=== PATIENT | female | born 1960 | race Caucasian/White ===

== ENCOUNTER 2016-06-16 19:43 | Emergency (ER) | payer OTHER ==
[~2016-06-16] VITALS: Ht 160 cm; Wt 80.5 kg
[~2016-06-16 19:43] MED LIST: ATV/1 PO; CITA40TA4 PO
[2016-06-16 19:48] VITALS: TEMP 37.2; Ht 160 cm; Wt 80.5 kg
[2016-06-16] MEDS ORDERED: ALBUT/IPRATROP 3MG/0.5MG NEB 3 ML VIAL INH STA (20:14)
[2016-06-16] MEDS ORDERED: KETOROLAC TROMETHAMINE 30 MG/ML VIAL IV STA (20:14)
[2016-06-16] MEDS ORDERED: LORA-741 PO (20:19)
[2016-06-16] MEDS ORDERED: ESCI10TA17 PO (20:20)
[2016-06-16] MEDS ORDERED: METO25TA56 PO (20:38)
[2016-06-16] MEDS ORDERED: ASPI81TA28 PO (20:40)
[2016-06-16 20:55] LABS: BASO % 0.7 %; BASO ABS # 0.06 K/uL (0-0.2); COMPLETE YES; EOS % 3.1 %; HEMATOCRIT 39.7 % (37-47); IG% 0.2 %; LYMPH % 18.6 %; LYMPH ABS # 1.64 K/uL (1.2-3.4); MEAN CELL VOLUME 89.8 fL (80-100); MEAN CORPUSCULAR HEMOGLOBIN 30.1 pg (25-34); MEAN CORPUSCULAR HGB CONC 33.5 g/dl (32-36); MEAN PLATELET VOLUME 9.7 fL (7.4-10.4); MONO % 11.5 %; NEUT % 65.9 %; PLATELET COUNT 314 K/uL (130-400); RED BLOOD COUNT 4.42 M/uL (4.2-5.4); WHITE BLOOD COUNT 8.81 K/uL (4.8-10.8)
[2016-06-16 21:13] LABS: CALCIUM 8.4 mg/dl (8.5-10.1)
[2016-06-16 21:15] LABS: BUN/CREATININE RATIO 12.2 (10-20); CREATININE 0.77 mg/dl (0.60-1.20); POTASSIUM 3.8 mmol/L (3.5-5.1)
--- NOTE | 2016-06-16 21:40 | DIAGNOSTIC IMAGING REPORT ---
TWO VIEW CHEST CLINICAL HISTORY: Cough and fever. Dyspnea.. FINDINGS: PA and lateral chest radiographs are compared to study dated 05/05/2015. The patient is status post midline sternotomy. The heart is enlarged and there is atherosclerotic calcification of the thoracic aorta. The pulmonary vasculature is noncongested. The lungs and pleural spaces are clear. There is no pneumothorax. The skeletal structures are osteopenic. The bony thorax appears intact. IMPRESSION: Cardiomegaly with no active disease in the chest. Electronically signed by: Petar Anderson M.D. 06/16/2016 9:38 PM Dictated Date/Time: 06/16/2016 9:36 PM
[2016-06-16] MEDS ORDERED: ALBUTEROL HFA 8 GM INHALER INH ONE (22:00)
[2016-06-16 22:13] VITALS: BP 119/70; PULSE 73; O2SAT 93
[2016-06-16] MEDS ORDERED: EZET10TA38 PO (23:40)
--- NOTE | 2016-06-18 07:52 | EMERGENCY ROOM VISIT NOTE ---
ED Visit Note First contact with patient: 20:06 Chief Complaint: Sore throat, cough and chest congestion. History of Present Illness: Ms. Shay is a 56-year-old white female who ambulates into the ED complaining of pharyngitis and shortness of breath. Historically patient reports she has a history of hypertension, coronary artery disease and is status post quadruple CABG. Patient reports her symptoms started approximately 3-4 days ago. At that time she started noticing a mild nonproductive cough and chest congestion associated with nasal drainage. On day 2 of her illness she developed a sore throat and today she reports she heard herself wheezing and had dyspnea on exertion. Currently she describes her sore throat as a deep achy sensation. Her pain is located in the posterior pharyngeal area. She rates this discomfort 7/10. The pain is radiating into the left ear. The pain worsens with swallowing. She has not identified any alleviating factors related to the pain. She reports taking Aleve for her discomfort prior to arrival at the hospital and had mild relief of her discomfort. Associated with her discomfort as previously noted she has been having chest congestion, nasal drainage, wheezing, dyspnea on exertion, left ear pain and today she reports she had some chills and was unsure if she was febrile. Additionally I noted on her triage assessment she was hypertensive and she reports that she did not take her antihypertensive medication today prior to coming to the hospital but to the best of her knowledge her blood pressure has been controlled. Currently she denies sweats, skin eruptions, skin color changes, headache, dizziness, hearing changes, ear drainage, painful talking, drooling, inability to swallow, voice changes, neck pain/stiffness, hemoptysis, shortness of breath at rest, chest discomfort, palpitations, orthopnea, dependent edema, previous clots, claudication, recent surgery/inactivity/extended travel, abdominal pain, nausea, vomiting. Review of Systems: As noted above in history of present illness. All body systems were reviewed and found to be negative as noted above. Past Medical History: As previously noted and status post carpal tunnel release and bunionectomy. Current Medications: Metoprolol, aspirin, Vytorin, Ativan, Lexapro Allergies to Medications: Patient denies. Social History: Patient is currently employed; she feels safe in her home environment; she admits to tobacco use and denies alcohol use. Physical Examination: Vital Signs: Date Time Temp Pulse Resp B/P Pulse Ox O2 Delivery O2 Flow Rate FiO2 06/16/16 22:13 73 20 119/70 93 06/16/16 21:03 76 20 139/81 93 Room Air 06/16/16 21:03 93 Room Air 06/16/16 19:48 37.2 84 19 164/105 94 Room Air GENERAL: 56-year-old female in mild distress due to symptoms, nontoxic-appearing , afebrile and hemodynamically stable. NEUROLOGICAL: Awake, alert and oriented to person, place and time. Answering questions appropriately and following commands. Normal gait. Good hand eye coordination. No focal motor sensory deficits. SKIN: Warm, dry and pink. No soft tissue eruptions or trauma noted. HEENT: Atraumatic and normocephalic. No erythema or tenderness over the frontal or maxillary sinuses. Left external ear is nontender. Auditory canal is pink and patent. Tympanic membranes wilson with normal light reflex; no erythema or bulging. Right ear examination was unremarkable PERRLA. Sclera white and conjunctiva pink. No drainage from naris. Oral cavity moist and pink. Uvula is midline and no abscesses are seen. Pharynx is mildly erythematous or edematous. No tonsillar hypertrophy or exudates. Speech normal. No laryngeal tenderness. No lymphadenopathy. Trachea midline. No jugular venous distention. BACK: No tenderness over the bony spine. No CVA tenderness. THORAX: Lungs sounds show a few scattered rhonchi throughout all lung jerez that cleared with cough. There was a few scattered wheezing predominantly in the right lower lobe jerez as well as decreased air movement in the bilateral lower lung jerez. Equal bilaterally with symmetrical chest wall. No increased respiratory effort or rate. No rales. No crepitus, tenderness, subcutaneous air or deformities noted. HEART: Regular rate and rhythm. No gallops, rubs or murmurs are appreciated. ABDOMEN: Flat, soft and nontender. Positive bowel sounds in all quadrants. No guarding, rigidity or organomegaly. EXTREMITIES: Moves all extremities well on command and with purpose. All distal neurovascular statuses are intact and equal bilaterally. No calf tenderness or cords. ED Course: Patient is assessed as noted above. Laboratory Testing: Test 06/16/16 20:40 Range/Units White Blood Count 8.81 4.8-10.8 K/uL Red Blood Count 4.42 4.2-5.4 M/uL Hemoglobin 13.3 12.0-16.0 g/dL Hematocrit 39.7 37-47 % Mean Corpuscular Volume 89.8 80-100 fL Mean Corpuscular Hemoglobin 30.1 25-34 pg Mean Corpuscular Hemoglobin Concent 33.5 32-36 g/dl Platelet Count 314 130-400 K/uL Mean Platelet Volume 9.7 7.4-10.4 fL Neutrophils (%) (Auto) 65.9 % Lymphocytes (%) (Auto) 18.6 % Monocytes (%) (Auto) 11.5 % Eosinophils (%) (Auto) 3.1 % Basophils (%) (Auto) 0.7 % Neutrophils # (Auto) 5.81 1.4-6.5 K/uL Lymphocytes # (Auto) 1.64 1.2-3.4 K/uL Monocytes # (Auto) 1.01 0.11-0.59 K/uL Eosinophils # (Auto) 0.27 0-0.5 K/uL Basophils # (Auto) 0.06 0-0.2 K/uL RDW Standard Deviation 42.6 36.4-46.3 fL RDW Coefficient of Variation 13.1 11.5-14.5 % Immature Granulocyte % (Auto) 0.2 % Immature Granulocyte # (Auto) 0.02 0.00-0.02 K/uL Sodium Level 140 136-145 mmol/L Potassium Level 3.8 3.5-5.1 mmol/L Chloride Level 108 98-107 mmol/L Carbon Dioxide Level 23 21-32 mmol/L Anion Gap 9.0 3-11 mmol/L Blood Urea Nitrogen 9 7-18 mg/dl Creatinine 0.77 0.60-1.20 mg/dl Est Creatinine Clear Calc Drug Dose 81.0 ml/min Estimated GFR () 99.3 Estimated GFR (Non- 85.7 BUN/Creatinine Ratio 12.2 10-20 Random Glucose 90 70-99 mg/dl Calcium Level 8.4 8.5-10.1 mg/dl Rapid Strep Screening: Negative. Culture pending. Chest X-Rays: Were read by myself and the radiologist and shows no acute infiltrates, effusions or pneumothorax. Heart silhouette was enlarged with radiologist noting calcification in the their thoracic aorta. Pulmonary vasculature was not congested. Midline sternotomy was noted and this was compared to a previous from 2016 in no acute changes were noted. Patient was hydrated with normal saline, she was given an albuterol/Atrovent nebulizer breathing treatment for her wheezing and 30 mg of Toradol IV for her throat discomfort. After her breathing treatment her lung sounds were reassessed and they were clear to auscultation with resolution of all rhonchi and wheezing although the lower lung jerez remain slightly diminished. Patient's case was reviewed with Dr. Neely; we agreed on diagnostic approach, treatment, disposition and plan. Patient was educated about joseight's findings and instructed on her treatment plan; she verbalizes understanding and agreement with this plan. Clinical Impression: Acute bronchitis. Pharyngitis. Left ear pain. Chest congestion. Decision-Making: Initially my differential diagnosis I considered pneumonia, bronchitis, acute coronary syndrome, congestive heart failure, sinusitis, and other causes. Disposition: Patient discharged home in stable condition; prior to departure she was reassessed and subjectively reported she was feeling much better and had no respiratory complaints and reported her throat discomfort was rated a 1/ 10. I also noted improvement of her blood pressure prior to discharge. Plan: Patient was encouraged to continue her current medications as prescribed. Patient was encouraged to use 650 mg of acetaminophen every 6 hours as needed for pain or fevers. Patient was encouraged to consider gargling with saltwater for her throat discomfort. Patient was encouraged to avoid tobacco use until feeling better. Patient was prescribed an albuterol inhaler and encouraged to use 2 puffs with spacer every 6 hours for 5 days and as needed for any shortness of breath/ wheezing or severe coughing episodes. Patient was encouraged to use [id number] Delsym cough suppressant and follow packaging instructions for dosing. Patient was encouraged to follow-up with her PCP for recheck in 2-3 days. Patient was encouraged to return to the ED for worsening/uncontrolled symptoms, uncontrolled shortness of breath, coughing up blood, uncontrolled fevers or any new/concerning symptoms.
[2016-11-12] MEDS ORDERED: OMEP20TA PO (15:41)
[2016-11-12] MEDS ORDERED: FLUO20CA35 PO (15:42)
== END 2016-06-16 22:15 | disposition home or self-care (01) ==
LOC: C.EDB 19:45 → C.EDD 22:15
DX: J20.9 Acute bronchitis, unspecified (principal); J02.9 Acute pharyngitis, unspecified; H92.02 Otalgia, left ear; R09.89 Other specified symptoms and signs involving the circulatory and respiratory systems; I10 Essential (primary) hypertension; I25.10 Atherosclerotic heart disease of native coronary artery without angina pectoris; Z95.1 Presence of aortocoronary bypass graft; Z79.82 Long term (current) use of aspirin; Z79.899 Other long term (current) drug therapy; F17.200 Nicotine dependence, unspecified, uncomplicated

== ENCOUNTER → 2016-11-18 | Day surgery (SDC) | payer OTHER ==
[2016-11-12 15:43] VITALS: BMI 29.0
[~2016-11-18] VITALS: Ht 162.6 cm; Wt 77.3 kg
[~2016-11-18] MED LIST changes: +ASPI81TA28 PO; -ATV/1 PO; -CITA40TA4 PO; +ENDOSCOPIC MARKER 5 ML SYR ONE; +EZET10TA38 PO; +FLUO20CA35 PO; +LIDOCAINE HCL 2% 2 ML VIAL (20MG/ML) ONE; +LORA-741 PO; +METO25TA56 PO; +OMEP20TA PO; +PROPOFOL IV EMULSION 10 MG/ML 20 ML VIAL IV ONE; +SODIUM CHLORIDE 0.9% 500ML 500 ML IV ONE
[2016-11-18 09:40] VITALS: Ht 162.6 cm; Wt 77.3 kg
[2016-11-18 09:49] VITALS: TEMP 36.6
--- NOTE | 2016-11-18 10:03 | Endo History and Physical ---
History & Physical Date of Service: Nov 18, 2016. Chief Complaint: Screening Referring Physician: Dr. Beaver History of Present Illness 56 yo CF who presents for screening colonoscopy. Past Medical History Anxiety, Hypertension Past Surgical History Hx Cardiac Surgery: Yes (HEART CATH, NO STENTS; CABG X4 VESSELS) Hx Internal Defibrillator: No Hx Pacemaker: No Hx Abdominal Surgery: Yes () Hx of Implantable Prosthesis: No Hx Post-Op Nausea and Vomiting: No Hx Cancer Surgery: No Hx Thoracic Surgery: No Hx Orthopedic: Yes (LT BUNIONECTOMY) Hx Urinary Tract Surgery: No Family History None Social History Smoking Status: Current Every Day Smoker Hx Substance Use: No Hx Alcohol Use: No Allergies Coded Allergies: No Known Allergies (Verified , 11/18/16) Current Medications Reported Home Medications Medications Dose Route/Sig Max Daily Dose Days Date Category Prozac (Fluoxetine HCl) 20 Mg Cap 20 Mg PO QPM 11/12/16 Reported Omeprazole 20 Mg Tab 1 Tab PO QAM 11/12/16 Reported Ativan (Lorazepam) 0.5 Mg Tab 0.5 Mg PO DAILY PRN 06/16/16 Reported Vytorin 10MG/20MG (Ezetimibe/Simvastatin) Tab 1 Tab PO QPM 05/04/15 Reported Aspirin Ec (Aspirin) 81 Mg Tab 81 Mg PO BID 02/01/14 Reported Lopressor (Metoprolol Tartrate) 25 Mg Tab 25 Mg PO BID 02/01/14 Reported Vital Signs Weight (Kilograms): 77.27 Height (Feet): 5 Height (Inches): 4 Date Time Temp Pulse Resp B/P (MAP) Pulse Ox O2 Delivery O2 Flow Rate FiO2 11/18/16 09:49 36.6 53 20 119/65 (83) 20 Room Air Physical Exam General Appearance: WD/WN, no apparent distress Respiratory/Chest: Auscultation: breath sounds normal Cardiovascular: Heart Auscultation: RRR Abdomen: Bowel Sounds: normal Inspection & Palpation: soft, non-distended, no tenderness, guarding & rebound Assessment and Plan Assessment: 56 yo CF who presents for screening colonoscopy. Plan: Proceed with colonoscopy.
--- NOTE | 2016-11-18 11:01 | Discharge Instructions ---
Endoscopy Patient Instructions Date / Procedure(s) Performed Nov 18, 2016. Colonoscopy Allergy Information Coded Allergies: No Known Allergies (Verified , 11/18/16) Discharge Date / Findings Nov 18, 2016. Colon polyps Diverticulosis Internal hemorrhoids Medication Instructions OK to resume all medications today as prescribed Reported Home Medications Medications Dose Route/Sig Max Daily Dose Days Date Category Prozac (Fluoxetine HCl) 20 Mg Cap 20 Mg PO QPM 11/12/16 Reported Omeprazole 20 Mg Tab 1 Tab PO QAM 11/12/16 Reported Ativan (Lorazepam) 0.5 Mg Tab 0.5 Mg PO DAILY PRN 06/16/16 Reported Vytorin 10MG/20MG (Ezetimibe/Simvastatin) Tab 1 Tab PO QPM 05/04/15 Reported Aspirin Ec (Aspirin) 81 Mg Tab 81 Mg PO BID 02/01/14 Reported Lopressor (Metoprolol Tartrate) 25 Mg Tab 25 Mg PO BID 02/01/14 Reported Provider Instructions Activity Restrictions - No exercising or heavy lifting for 24 hours. - Do not drink alcohol the day of the procedure. - Do not drive a car or operate machinery until the day after the procedure. - Do not make any important decisions or sign important papers in 24 hours after the procedure. Following Day: - Return to full activity which may include returning to work/school. Diet Start your diet with liquids and light foods (jello, soup, juice, toast). Then eat your usual diet if not nauseated. Treatment For Common After Affects For mild abdominal pain, bloating, or excessive gas: - Rest - Eat lightly - Lie on right side Follow-Up Information Follow-up with Dr. Beaver as scheduled Anesthesia Information What You Should Know You have had a procedure that required some medicine to reduce anxiety and discomfort. This treatment is called moderate sedation. After receiving the treatment, you may be sleepy, but you will be able to breathe on your own. The effects of the treatment may last for several hours. Follow these instructions along with Activity/Diet recommendations noted above: * Do NOT do anything where dizziness or clumsiness would be dangerous. * Rest quietly at home today, then you can be up and about tomorrow. * Have a responsible person stay with you the rest of today. * You may have had an I.V. today. If so, you may take the dressing off later today. Recommendations Call your doctor if: * Trouble breathing * Continuous vomiting for more than 24 hours * Temperature above 101 degrees * Severe abdominal pain or bloating * Pain not relieved by pain medicine ordered * There is increased drainage or redness from any incision * A large amount of rectal bleeding greater than 2-3 tablespoons. (If you had a polyp/s removed or have hemorrhoids, a small amount of blood - from the rectum is to be expected.) * You have any unanswered questions or concerns. IN THE EVENT OF A SERIOUS EMERGENCY, GO TO THE NEAREST EMERGENCY ROOM Your discharge instructions were prepared by provider Ambrocio Mccarthy. Patient Instructions Signature Page Savanah Shay Patient (or Guardian) Signature/Date: I have read and understand the instructions given to me by my caregivers. Caregiver/RN/Doctor Signature/Date: The above-named patient and/or guardian has received patient instructions on this date. + Original Patient Signature Page (only) stays with chart. Please make copy for patient.
--- NOTE | 2016-11-18 11:06 | GI REPORT ---
Procedure Date: 11/18/2016 10:31 AM Procedure: Colonoscopy Indications: Screening for colorectal malignant neoplasm Medicines: Monitored Anesthesia Care Complications: No immediate complications. Estimated Blood Loss: Estimated blood loss: none. Procedure: Pre-Anesthesia Assessment: - Prior to the procedure, a History and Physical was performed, and patient medications and allergies were reviewed. The patient's tolerance of previous anesthesia was also reviewed. The risks and benefits of the procedure and the sedation options and risks were discussed with the patient. All questions were answered, and informed consent was obtained. Prior Anticoagulants: The patient has taken aspirin, last dose was 1 day prior to procedure. ASA Grade Assessment: III - A patient with severe systemic disease. After reviewing the risks and benefits, the patient was deemed in satisfactory condition to undergo the procedure. After I obtained informed consent, the scope was passed under direct vision. Throughout the procedure, the patient's blood pressure, pulse, and oxygen saturations were monitored continuously. The Scope was introduced through the anus and advanced to the terminal ileum. The colonoscopy was performed without difficulty. The patient tolerated the procedure well. The quality of the bowel preparation was good. The terminal ileum, ileocecal valve, appendiceal orifice, and rectum were photographed. Findings: A 30 mm polyp was found at the splenic flexure. The polyp was semi-pedunculated. The polyp was removed with a piecemeal technique using a hot snare. Resection and retrieval were complete. Area was tattooed with an injection of 5 mL of Kassie ink on the opposite wall of the colon. Three sessile polyps were found in the sigmoid colon. The polyps were 4 to 7 mm in size. These polyps were removed with a hot snare. Resection and retrieval were complete. Scattered small-mouthed diverticula were found in the sigmoid colon, in the descending colon and in the transverse colon. Non-bleeding internal hemorrhoids were found during retroflexion. The hemorrhoids were small. Impression: - One 30 mm polyp at the splenic flexure, removed piecemeal using a hot snare. Resected and retrieved. Tattooed. - Three 4 to 7 mm polyps in the sigmoid colon, removed with a hot snare. Resected and retrieved. - Diverticulosis in the sigmoid colon, in the descending colon and in the transverse colon. - Non-bleeding internal hemorrhoids. Recommendation: - Resume previous diet. - Continue present medications. - Repeat colonoscopy for surveillance based on pathology results. - Return to primary care physician as previously scheduled. Ambrocio Mccarthy, DO 11/18/2016 11:06:24 AM This report has been signed electronically. Note Initiated On: 11/18/2016 10:31 AM I attest to the content of the Intraoperative Record and orders documented therein, exceptions below
--- NOTE | 2016-11-18 11:12 | Anesthesiology Progress Note ---
Anesthesia Post Op Note Date & Time Nov 18, 2016 at 11:12 Vital Signs Pain Intensity: 0 Vital Signs Past 12 Hours Date Time Temp Pulse Resp B/P (MAP) Pulse Ox O2 Delivery O2 Flow Rate FiO2 11/18/16 11:06 56 20 103/66 (78) 20 Room Air 11/18/16 09:49 36.6 53 20 119/65 (83) 20 Room Air Notes Mental Status: alert / awake / arousable, participated in evaluation Pt Amnestic to Procedure: Yes Nausea / Vomiting: adequately controlled Pain: adequately controlled Airway Patency, RR, SpO2: stable & adequate BP & HR: stable & adequate Hydration State: stable & adequate Anesthetic Complications: no major complications apparent
[2016-11-18 11:36] VITALS: BP 132/80; PULSE 49; O2SAT 98
== END | disposition home or self-care (01) ==
LOC: C.GI 09:28
PROVIDERS: ATTEND Internal Medicine
DX: Z12.11 Encounter for screening for malignant neoplasm of colon (principal); D12.3 Benign neoplasm of transverse colon; D12.5 Benign neoplasm of sigmoid colon; K57.30 Diverticulosis of large intestine without perforation or abscess without bleeding; K64.8 Other hemorrhoids; F17.200 Nicotine dependence, unspecified, uncomplicated; Z79.82 Long term (current) use of aspirin; Z79.899 Other long term (current) drug therapy

== ENCOUNTER → 2017-02-03 | Outpatient (CLI) | payer OTHER ==
[~2017-02-03] MED LIST changes: -ENDOSCOPIC MARKER 5 ML SYR ONE; -LIDOCAINE HCL 2% 2 ML VIAL (20MG/ML) ONE; -PROPOFOL IV EMULSION 10 MG/ML 20 ML VIAL IV ONE; -SODIUM CHLORIDE 0.9% 500ML 500 ML IV ONE
[2017-02-03 13:12] LABS: ALT/SGPT 18 U/L (12-78); AST/SGOT 10 U/L (15-37); CHOLESTEROL 236 mg/dl (0-200); CHOLESTEROL/HDL RATIO 4.5; HDL CHOLESTEROL 53 mg/dl; TRIGLYCERIDES 117 mg/dl (0-150); VERY LOW DENSITY LIPOPROT CALC 23 mg/dl
== END | disposition home or self-care (01) ==
LOC: C.LABBFT 09:45
PROVIDERS: ATTEND Physician Assistant Medical
DX: I25.10 Atherosclerotic heart disease of native coronary artery without angina pectoris (principal); F41.9 Anxiety disorder, unspecified; E78.5 Hyperlipidemia, unspecified; F32.9 Major depressive disorder, single episode, unspecified

== ENCOUNTER → 2017-02-04 | Outpatient (CLI) | payer OTHER ==
[2017-02-09 12:33] LABS: O&P SOURCE OTHER-STOOL
== END | disposition home or self-care (01) ==
LOC: C.LABSPEC 10:32
PROVIDERS: ATTEND Nurse Practitioner
DX: R19.7 Diarrhea, unspecified (principal)

== ENCOUNTER → 2017-02-05 | Outpatient (CLI) | payer OTHER ==
--- NOTE | 2017-02-05 09:26 | DIAGNOSTIC IMAGING REPORT ---
ULTRASOUND RIGHT UPPER QUADRANT ABDOMEN CLINICAL HISTORY: Right upper quadrant abdominal pain. COMPARISON STUDY: Abdominal CT dated 02/01/2014. TECHNIQUE: Real-time, grayscale, and color flow sonography of the right upper quadrant of the abdomen was performed. Images are reviewed in the transverse and longitudinal planes. FINDINGS: Liver: The liver is normal in size and echotexture. There is no intrahepatic biliary ductal dilatation. The main portal vein is patent. Gallbladder: The gallbladder is normal in appearance. No gallstones are identified. There is no gallbladder wall thickening or pericholecystic fluid. A sonographic Flores's sign is reportedly absent. The common bile duct measures up to 0.5 cm in diameter. Pancreas: Visualized portions of the pancreatic head and body are normal in appearance. The splenic vein is patent. Right kidney: Survey images of the right kidney demonstrate mild cortical atrophy. There is no hydronephrosis. A 10 mm cyst is incidentally noted. Ascites: None. IMPRESSION: No acute sonographic abnormality is identified in the right upper quadrant. No gallstones are seen. Electronically signed by: Petar Anderson M.D. 02/05/2017 9:25 AM Dictated Date/Time: 02/05/2017 9:24 AM
== END | disposition home or self-care (01) ==
LOC: C.ULTR 08:58
PROVIDERS: ATTEND Nurse Practitioner
DX: R10.811 Right upper quadrant abdominal tenderness (principal)

== ENCOUNTER → 2017-02-16 | Outpatient (CLI) | payer OTHER ==
[~2017-02-16] MED LIST changes: +SINCALIDE INJ 1.5 MCG in SODIUM CHLORIDE 0.9% 100ML 100 ML IV ONE
--- NOTE | 2017-02-16 15:16 | DIAGNOSTIC IMAGING REPORT ---
NUCLEAR MEDICINE HEPATOBILIARY SCAN WITH GALLBLADDER EJECTION FRACTION CLINICAL HISTORY: Right upper quadrant tenderness. COMPARISON: Right upper quadrant ultrasound February 05, 2017. TECHNIQUE: 5.5 mCi of technetium 99m Choletec IV was injected at 1:15 PM on February 16, 2017. Immediately following injection, imaging of the abdomen was carried out for 60 minutes in the anterior projection. At this time, 1.5 mcg of Sincalide was injected IV as per protocol. Imaging was performed for an additional 45 minutes to estimate a gallbladder ejection fraction. FINDINGS: Hepatic uptake of radiotracer is prompt and homogeneous. Activity is first identified within the common bile duct at 15 minutes, small bowel at 20 minutes and gallbladder at 25 minutes. Normal gallbladder emptying was noted following injection of sincalide with gallbladder ejection fraction estimated at 84%. Normal is greater than 30-35%. IMPRESSION: 1. Normal hepatobiliary scan. No evidence of acute or chronic cholecystitis. 2. Normal gallbladder ejection fraction of 84%. Electronically signed by: Cuong Beaver M.D. 02/16/2017 3:15 PM Dictated Date/Time: 02/16/2017 3:13 PM
== END | disposition home or self-care (01) ==
LOC: C.NUCL 12:31
PROVIDERS: ATTEND Nurse Practitioner
DX: R10.811 Right upper quadrant abdominal tenderness (principal)

== ENCOUNTER → 2017-05-18 | Day surgery (SDC) | payer OTHER ==
[2017-04-30 09:29] VITALS: Ht 162.6 cm; Wt 77.3 kg
[~2017-05-18] VITALS: Ht 162.6 cm; Wt 77.3 kg
[~2017-05-18] MED LIST changes: -OMEP20TA PO; +PANT40TA PO; +PROPOFOL IV EMULSION 10 MG/ML 20 ML VIAL IV ONE; -SINCALIDE INJ 1.5 MCG in SODIUM CHLORIDE 0.9% 100ML 100 ML IV ONE; +SODIUM CHLORIDE 0.9% 500ML 500 ML IV ONE
--- NOTE | 2017-05-18 08:52 | Endo History and Physical ---
History & Physical Date of Service: May 18, 2017. Chief Complaint: History of colon polyp Referring Physician: Dr. Beaver History of Present Illness 57 yo CF who presents for colonoscopy secondary to history of colon polyps. Past Medical History Anxiety, Hypertension Past Surgical History Hx Cardiac Surgery: Yes (HEART CATH, NO STENTS; CABG X4 VESSELS) Hx Internal Defibrillator: No Hx Pacemaker: No Hx Abdominal Surgery: Yes () Hx of Implantable Prosthesis: No Hx Post-Op Nausea and Vomiting: No Hx Cancer Surgery: No Hx Thoracic Surgery: No Hx Orthopedic: Yes (LT BUNIONECTOMY) Hx Urinary Tract Surgery: No Family History None Social History Smoking Status: Current Every Day Smoker Hx Substance Use: No Hx Alcohol Use: No Allergies Coded Allergies: No Known Allergies (Verified , 05/18/17) Current Medications Reported Home Medications Medications Dose Route/Sig Max Daily Dose Days Date Category Protonix (Pantoprazole Sodium) 40 Mg Tab 40 Mg PO HS 04/30/17 Reported Prozac (Fluoxetine HCl) 20 Mg Cap 20 Mg PO QPM 11/12/16 Reported Ativan (Lorazepam) 0.5 Mg Tab 0.5 Mg PO DAILY PRN 06/16/16 Reported Vytorin 10MG/20MG (Ezetimibe/Simvastatin) Tab 1 Tab PO QPM 05/04/15 Reported Aspirin Ec (Aspirin) 81 Mg Tab 81 Mg PO BID 02/01/14 Reported Lopressor (Metoprolol Tartrate) 25 Mg Tab 25 Mg PO BID 02/01/14 Reported Vital Signs Weight (Kilograms): 77.27 Height (Feet): 5 Height (Inches): 4 Date Time Temp Pulse Resp B/P (MAP) Pulse Ox O2 Delivery O2 Flow Rate FiO2 05/18/17 08:22 36.6 51 16 140/78 (98) 99 Room Air Physical Exam General Appearance: WD/WN, no apparent distress Respiratory/Chest: Auscultation: breath sounds normal Cardiovascular: Heart Auscultation: RRR Abdomen: Bowel Sounds: normal Inspection & Palpation: soft, non-distended, no tenderness, guarding & rebound Assessment and Plan Assessment: 57 yo CF who presents for colonoscopy secondary to history of colon polyps. Plan: Proceed with colonoscopy.
--- NOTE | 2017-05-18 09:51 | Discharge Instructions ---
Endoscopy Patient Instructions Date / Procedure(s) Performed May 18, 2017. Colonoscopy Allergy Information Coded Allergies: No Known Allergies (Verified , 05/18/17) Discharge Date / Findings May 18, 2017. Colon polyp Diverticulosis Internal hemorrhoids Medication Instructions OK to resume all medications today as prescribed Reported Home Medications Medications Dose Route/Sig Max Daily Dose Days Date Category Protonix (Pantoprazole Sodium) 40 Mg Tab 40 Mg PO HS 04/30/17 Reported Prozac (Fluoxetine HCl) 20 Mg Cap 20 Mg PO QPM 11/12/16 Reported Ativan (Lorazepam) 0.5 Mg Tab 0.5 Mg PO DAILY PRN 06/16/16 Reported Vytorin 10MG/20MG (Ezetimibe/Simvastatin) Tab 1 Tab PO QPM 05/04/15 Reported Aspirin Ec (Aspirin) 81 Mg Tab 81 Mg PO BID 02/01/14 Reported Lopressor (Metoprolol Tartrate) 25 Mg Tab 25 Mg PO BID 02/01/14 Reported Provider Instructions Activity Restrictions - No exercising or heavy lifting for 24 hours. - Do not drink alcohol the day of the procedure. - Do not drive a car or operate machinery until the day after the procedure. - Do not make any important decisions or sign important papers in 24 hours after the procedure. Following Day: - Return to full activity which may include returning to work/school. Diet Start your diet with liquids and light foods (jello, soup, juice, toast). Then eat your usual diet if not nauseated. Treatment For Common After Affects For mild abdominal pain, bloating, or excessive gas: - Rest - Eat lightly - Lie on right side Follow-Up Information Follow-up with Dr. Beaver as scheduled Anesthesia Information What You Should Know You have had a procedure that required some medicine to reduce anxiety and discomfort. This treatment is called moderate sedation. After receiving the treatment, you may be sleepy, but you will be able to breathe on your own. The effects of the treatment may last for several hours. Follow these instructions along with Activity/Diet recommendations noted above: * Do NOT do anything where dizziness or clumsiness would be dangerous. * Rest quietly at home today, then you can be up and about tomorrow. * Have a responsible person stay with you the rest of today. * You may have had an I.V. today. If so, you may take the dressing off later today. Recommendations Call your doctor if: * Trouble breathing * Continuous vomiting for more than 24 hours * Temperature above 101 degrees * Severe abdominal pain or bloating * Pain not relieved by pain medicine ordered * There is increased drainage or redness from any incision * A large amount of rectal bleeding greater than 2-3 tablespoons. (If you had a polyp/s removed or have hemorrhoids, a small amount of blood - from the rectum is to be expected.) * You have any unanswered questions or concerns. IN THE EVENT OF A SERIOUS EMERGENCY, GO TO THE NEAREST EMERGENCY ROOM Your discharge instructions were prepared by provider Ambrocio Mccarthy. Patient Instructions Signature Page Savanah Shay Patient (or Guardian) Signature/Date: I have read and understand the instructions given to me by my caregivers. Caregiver/RN/Doctor Signature/Date: The above-named patient and/or guardian has received patient instructions on this date. + Original Patient Signature Page (only) stays with chart. Please make copy for patient.
--- NOTE | 2017-05-18 09:58 | GI REPORT ---
Procedure Date: 05/18/2017 9:24 AM Procedure: Colonoscopy Indications: High risk colon cancer surveillance: Personal history of colonic polyps Medicines: Monitored Anesthesia Care Complications: No immediate complications. Estimated Blood Loss: Estimated blood loss: none. Procedure: Pre-Anesthesia Assessment: - Prior to the procedure, a History and Physical was performed, and patient medications and allergies were reviewed. The patient's tolerance of previous anesthesia was also reviewed. The risks and benefits of the procedure and the sedation options and risks were discussed with the patient. All questions were answered, and informed consent was obtained. Prior Anticoagulants: The patient has taken aspirin, last dose was 1 day prior to procedure. ASA Grade Assessment: III - A patient with severe systemic disease. After reviewing the risks and benefits, the patient was deemed in satisfactory condition to undergo the procedure. After I obtained informed consent, the scope was passed under direct vision. Throughout the procedure, the patient's blood pressure, pulse, and oxygen saturations were monitored continuously. The Scope was introduced through the anus and advanced to the terminal ileum. The colonoscopy was performed without difficulty. The patient tolerated the procedure well. The quality of the bowel preparation was good. The terminal ileum, ileocecal valve, appendiceal orifice, and rectum were photographed. Findings: The perianal and digital rectal examinations were normal. A 5 mm polyp was found in the ascending colon. The polyp was sessile. The polyp was removed with a hot snare. Resection and retrieval were complete. Multiple small-mouthed diverticula were found in the sigmoid colon. Non-bleeding internal hemorrhoids were found during retroflexion. The hemorrhoids were small. Impression: - One 5 mm polyp in the ascending colon, removed with a hot snare. Resected and retrieved. - Diverticulosis in the sigmoid colon. - Non-bleeding internal hemorrhoids. Recommendation: - Resume previous diet. - Continue present medications. - Repeat colonoscopy for surveillance based on pathology results. - Return to primary care physician as previously scheduled. Ambrocio Mccarthy, DO 05/18/2017 9:57:37 AM This report has been signed electronically. Note Initiated On: 05/18/2017 9:24 AM I attest to the content of the Intraoperative Record and orders documented therein, exceptions below
--- NOTE | 2017-05-18 10:12 | Anesthesiology Progress Note ---
Anesthesia Post Op Note Date & Time May 18, 2017 at 10:12 Vital Signs Pain Intensity: 0 Vital Signs Past 12 Hours Date Time Temp Pulse Resp B/P (MAP) Pulse Ox O2 Delivery O2 Flow Rate FiO2 05/18/17 08:22 36.6 51 16 140/78 (98) 99 Room Air Notes Mental Status: alert / awake / arousable, participated in evaluation Pt Amnestic to Procedure: Yes Nausea / Vomiting: adequately controlled Pain: adequately controlled Airway Patency, RR, SpO2: stable & adequate BP & HR: stable & adequate Hydration State: stable & adequate Anesthetic Complications: no major complications apparent
[2017-05-18 10:22] VITALS: BP 175/88; PULSE 48; O2SAT 97
== END | disposition home or self-care (01) ==
LOC: C.GI 07:48
PROVIDERS: ATTEND Internal Medicine
DX: Z12.11 Encounter for screening for malignant neoplasm of colon (principal); D12.2 Benign neoplasm of ascending colon; K57.30 Diverticulosis of large intestine without perforation or abscess without bleeding; K64.8 Other hemorrhoids; Z86.010 Personal history of colon polyps; Z95.1 Presence of aortocoronary bypass graft; I10 Essential (primary) hypertension; F32.9 Major depressive disorder, single episode, unspecified; F41.9 Anxiety disorder, unspecified; M19.90 Unspecified osteoarthritis, unspecified site; Z98.890 Other specified postprocedural states; F17.200 Nicotine dependence, unspecified, uncomplicated; Z79.899 Other long term (current) drug therapy; Z79.82 Long term (current) use of aspirin

== ENCOUNTER 2023-10-11 01:41 | Inpatient (IN) ==
--- NOTE | 2023-10-11 01:57 | Emergency Department Note ---
History of Present Illness General Chief complaint: Chest Pain Stated complaint: CHEST PAIN,TROUBLE BREATHING,PALPITATIONS Time Seen by Provider: 10/11/23 01:47 History of Present Illness Maximum Pain Intensity: 7 This 63-year-old female who continues to smoke with history of Hyperlipidemia, Hypertension, GERD, Lumbar Degenerative Disc Disease, BPPV, COPD, Nicotine Dependence, Carotid Artery Stenosis (< 50% bilaterally), and CAD s/p NSTEMI s/p CABG x 4 Vessels 12/18/2013 presents the ER complaining of chest pain and shortness of breath for the past day. Nothing really makes it better or worse. The pain radiates to her shoulder blades. Patient denies fever, chills, flulike illness, leg pain or swelling, history of PE or DVT. Home Medications Medication Instructions Recorded Confirmed Type clobetasol 0.05 % topical cream 1 applic topical BID PRN Other 09/21/22 10/11/23 History tramadol 50 mg tablet 50 mg PO Q6H PRN pain #60 tabs 11/30/22 10/11/23 Rx lorazepam 0.5 mg tablet 0.5 mg PO TID PRN anxiety #30 tabs 12/25/22 10/11/23 Rx albuterol sulfate 90 mcg/actuation 2 puff inhalation Q6H PRN 03/31/23 10/11/23 Rx aerosol inhaler shortness of breath or wheezing #8.5 grams metoprolol tartrate 25 mg tablet 25 mg PO BID #180 tabs 06/23/23 10/11/23 Rx amlodipine 5 mg tablet 5 mg PO QAM 10/05/23 10/11/23 History ezetimibe 10 mg-simvastatin 80 mg 1 tab PO QPM 10/05/23 10/11/23 History tablet fluoxetine 40 mg capsule 40 mg PO QAM 10/05/23 10/11/23 History fluticasone furoate 200 1 inh inhalation QAM 10/05/23 10/11/23 History mcg-vilanterol 25 mcg/dose inhalation powder (Breo Ellipta) pantoprazole 40 mg tablet,delayed 40 mg PO QAM 10/05/23 10/11/23 History release aspirin 81 mg tablet,delayed 81 mg PO BID 10/11/23 10/11/23 History release Allergies Allergy/AdvReac Type Severity Reaction Status Date / Time atorvastatin AdvReac Mild Rash Verified 10/11/23 02:20 rosuvastatin [From Crestor] AdvReac Mild Rash Verified 10/11/23 02:20 Past Med/Surg History Problem List (Updated 10/11/23 @ 04:07 by Rick Fan MD) COPD (chronic obstructive pulmonary disease) Unstable angina (Acute) Biceps tendonitis on right Subacromial bursitis Partial thickness rotator cuff tear Disorder of rotator cuff Impingement of right shoulder Right rotator cuff tendinitis Left elbow pain Carpal tunnel syndrome, right Right hand paresthesia Carotid arterial disease Trochanteric bursitis of left hip (Chronic) BPPV (benign paroxysmal positional vertigo) (Chronic) Dyslipidemia (Chronic) Spinal stenosis of lumbar region with radiculopathy (Chronic) Anxiety (Chronic) Diverticulosis (Chronic) GERD without esophagitis (Chronic) Nicotine dependence (Chronic) CAD (coronary artery disease) (Chronic) h/o 4 v. CABG 2013 NSTEMI (non-ST elevated myocardial infarction) (Chronic 12/17/13) Hypertension (Chronic) Medical History CAD (coronary artery disease) Partial thickness rotator cuff tear Subacromial bursitis Biceps tendonitis on right Trochanteric bursitis of left hip Diverticulosis GERD (gastroesophageal reflux disease) Hypertension Hx of vertigo Spinal stenosis of lumbar region with radiculopathy COPD (chronic obstructive pulmonary disease) Carotid arterial disease Hx of colonic polyp Dyslipidemia Anxiety Hx of non-ST elevation myocardial infarction (NSTEMI) (2013) Surgical History Hx of colonoscopy with polypectomy History of bilateral carpal tunnel release right at [facility] 2023 left at [facility] 2015 Hx of cardiac cath (2013) [place], [place], to [facility] for cabg x 4 had second cath at [facility] after cabg, no furhter issues S/P CABG (coronary artery bypass graft) (~2013) 4 vessel CABG -[facility]- [facility] 10/11/23 History of section (1985) History of cataract surgery b/l, > 10 years ago History of foot surgery left foot, bunionectomy, surgery on 2nd toe, > 10 years ago Family History Mother Myocardial infarction Father Myocardial infarction Denies family history of Ovarian cancer Prostate cancer Breast cancer Colorectal cancer Social History Smoking Status: Current every day smoker Tobacco Type: Cigarettes Age Started Using Tobacco: 29; packs per day: 0.5; Cigarettes Per Day: 1 ppd (advised); Second Hand Exposure: No; Do You Dip or Chew Tobacco: No; Hx Alcohol Use: No Hx Substance Use: No Preferred Language: Sinhala Communication Ability: Effective Visual Impairment: No Limitations Hearing Ability: Normal [employer] Required: No Beliefs That Will Affect Care: None marital status: Current Living Situation: Spouse current occupational status: unemployed Feels Safe at Home: Yes Childhood Exposure to Second-Hand Smoke: No caffeine: Yes (coffee daily) Dental Care, Regularly: No Physical Activity Frequency: Daily Physical Activity Frequency Comment: walks daily as able with back issues Seatbelt Use: always Sunscreen Use: No Assistive Devices: Denture - Upper, Denture - Lower and Glasses Review of Systems A total of 10 systems reviewed and were otherwise negative Physical Exam Vital Signs Vital Signs - 24 hr 10/11/23 01:43 10/11/23 01:53 10/11/23 01:54 Temperature 36.5 C Temperature Source Temporal Artery Scan Pulse Rate 55 L 68 68 Pulse Rate [Left Radial] Pulse Rate from SpO2 Sensor Pulse Rhythm [Left Radial] Pulse Strength [Left Radial] Respiratory Rate 18 19 Respiratory Effort / Characteristics Non-Labored Spontaneous Respiratory Depth Normal Respiratory Pattern Blood Pressure 180/91 H Blood Pressure [Left Arm] Blood Pressure Mean 120 Blood Pressure Mean [Left Arm] Blood Pressure Position Sitting Blood Pressure Position [Left Arm] Pulse Oximetry 98 Oxygen Delivery Method Room Air Sepsis Recent Fever Within 48 Hours No Sepsis New/Unexplained Change in Mental Status N/A Sepsis Action Taken by Nursing No Action Required 10/11/23 01:56 10/11/23 01:56 10/11/23 02:03 Temperature Temperature Source Pulse Rate 66 Pulse Rate [Left Radial] Pulse Rate from SpO2 Sensor Pulse Rhythm [Left Radial] Pulse Strength [Left Radial] Respiratory Rate 22 Respiratory Effort / Characteristics Respiratory Depth Respiratory Pattern Blood Pressure 180/87 H 180/87 H Blood Pressure [Left Arm] Blood Pressure Mean 111 111 Blood Pressure Mean [Left Arm] Blood Pressure Position Blood Pressure Position [Left Arm] Pulse Oximetry Oxygen Delivery Method Sepsis Recent Fever Within 48 Hours Sepsis New/Unexplained Change in Mental Status Sepsis Action Taken by Nursing 10/11/23 02:09 10/11/23 02:10 10/11/23 02:10 Temperature Temperature Source Pulse Rate 58 L Pulse Rate [Left Radial] 62 Pulse Rate from SpO2 Sensor 62 Pulse Rhythm [Left Radial] Regular Pulse Strength [Left Radial] Normal Respiratory Rate 17 16 Respiratory Effort / Characteristics Non-Labored Spontaneous Respiratory Depth Normal Respiratory Pattern Regular Blood Pressure 117/62 Blood Pressure [Left Arm] 117/62 Blood Pressure Mean 86 Blood Pressure Mean [Left Arm] 80 Blood Pressure Position Blood Pressure Position [Left Arm] Pulse Oximetry 95 95 Oxygen Delivery Method Room Air Sepsis Recent Fever Within 48 Hours Sepsis New/Unexplained Change in Mental Status Sepsis Action Taken by Nursing 10/11/23 02:10 10/11/23 02:45 10/11/23 04:18 Temperature Temperature Source Pulse Rate 60 Pulse Rate [Left Radial] 60 Pulse Rate from SpO2 Sensor Pulse Rhythm [Left Radial] Regular Pulse Strength [Left Radial] Normal Respiratory Rate 16 20 Respiratory Effort / Characteristics Non-Labored Spontaneous Respiratory Depth Normal Respiratory Pattern Regular Blood Pressure 117/62 149/84 H Blood Pressure [Left Arm] 134/76 Blood Pressure Mean 86 Blood Pressure Mean [Left Arm] 95 Blood Pressure Position Blood Pressure Position [Left Arm] Lying Pulse Oximetry 97 95 Oxygen Delivery Method Room Air Room Air Sepsis Recent Fever Within 48 Hours Sepsis New/Unexplained Change in Mental Status Sepsis Action Taken by Nursing VITALS: Vitals are noted on the nurse's note and reviewed by myself. Vital signs stable. GENERAL: Pleasant female, in no acute distress, nondiaphoretic, well-developed well-nourished. SKIN: Capillary reflex less than 2 seconds. HEENT: Normocephalic. PERRLA. EOMI. Nares patent. Mucous membranes moist. Neck is supple without nuchal rigidity. HEART: Regular rate and rhythm LUNGS: Clear to auscultation bilaterally without wheezes, rales or rhonchi. No retractions or accessory muscle use. ABDOMEN: Positive bowel sounds x 4. Normal tympanic percussion. Soft, nontender, without masses or organomegaly. Flores sign negative. No guarding or rebound tenderness. no CVA tenderness MUSCULOSKELETAL: No gross musculoskeletal defects. NEURO: Patient was alert and oriented to person place and time. No focal neurological deficits. Course Administered Medications Fentanyl Citrate (Fentanyl Citrate Pf 100 Mcg/2 Ml Vial) 50 mcg IV Q15M PRN PRN Reason: Pain Stop: 10/25/23 03:20 Last Admin: 10/11/23 03:38 Dose: 50 mcg Documented By: NATHEN Heparin Sodium/Dextrose (Heparin Sodium/Dextrose) 25,000 units in 500 mls @ 23 mls/hr IV .[id number] [facility]; Protocol Stop: 11/10/23 03:29 Last Admin: 10/11/23 03:38 Dose: 1,150 units/hr, 23 mls/hr Documented By: NATHEN Co-signed By: NELSON Nitroglycerin (Nitroglycerin Sl 0.4 Mg/Tab Tab) 0.4 mg SL Q5M PRN PRN Reason: Chest Pain Stop: 11/10/23 01:55 Last Admin: 10/11/23 02:06 Dose: 0.4 mg Documented By: LEYDA Discontinued Medications Aspirin (Aspirin Chew 324 Mg) 324 mg PO NOW STA Stop: 10/11/23 01:57 Last Admin: 10/11/23 02:08 Dose: 324 mg Documented By: LEYDA Heparin Sodium (Porcine) (Heparin Sod (Porcine) 1000 Unit/Ml) 5,000 units IV NOW ONE Stop: 10/11/23 03:31 Last Admin: 10/11/23 03:37 Dose: 5,000 units Documented By: NATHEN Co-signed By: NELSON Acetaminophen (Ofirmev) 1,000 mg in 100 mls @ 400 mls/hr IV NOW STA Stop: 10/11/23 02:29 Last Infusion: 10/11/23 02:56 Dose: Infused Documented By: Admin: 10/11/23 02:25 Dose: 400 mls/hr Documented By: LEYDA Sodium Chloride (Nss) 500 mls @ 999 mls/hr IV .Q31M ONE Stop: 10/11/23 03:51 Last Admin: 10/11/23 03:39 Dose: 999 mls/hr Documented By: NATHEN Ioversol (Optiray 320 125ml) 125 ml IV ONCE ONE Stop: 10/11/23 02:39 Last Admin: 10/11/23 02:38 Dose: 118 ml Documented By: CARLOS Critical Care Time Critical Care Time: Yes Total Critical Care Time: 35 I have personally spent 35 minutes of critical care time in the direct management of this patient. This includes bedside care, interpretation of diagnostic studies, and testing, discussion with consultants, patient, and family members, and other required patient management activities. This 35 minutes is in excess of all separately billable procedures. Medical Decision Making Medical Records Attestation: I reviewed the patient's medical records. Home Medications Current Medication List: was personally reviewed by me Laboratory Data Attestation: I reviewed the patient's lab results. 10/11/23 01:55 10/11/23 01:55 Lab Results 10/11/23 10/11/23 10/11/23 Range/Units 01:55 02:09 03:45 WBC 9.80 (4.8-10.8) K/ul RBC 4.53 (4.20-5.40) M/uL Hgb 13.4 (12.0-16.0) g/dl POC Hgb 12.9 (12.0-16.0) g/dl Hct 40.4 (37.0-47.0) % POC Hct 38 (37-47) % MCV 89.2 (80.0-100.0) fL MCH 29.6 (25.0-34.0) pg MCHC 33.2 (32.0-36.0) g/dL RDW Std Deviation 42.9 (36.4-46.3) fL RDW Coeff of Kike 13.2 (11.5-14.5) % Plt Count 364 (130-400) K/uL MPV 9.4 (9.4-12.4) fL Immature Gran % (Auto) 0.2 % Neut % (Auto) 59.5 % Lymph % (Auto) 25.8 % Campbell % (Auto) 9.8 % Eos % (Auto) 3.9 % Baso % (Auto) 0.8 % Neut # (Auto) 5.83 (1.40-6.50) K/uL Lymph # (Auto) 2.53 (1.20-3.40) K/uL Campbell # (Auto) 0.96 H (0.11-0.59) K/uL Eos # (Auto) 0.38 (0.00-0.50) K/uL Baso # (Auto) 0.08 (0.00-0.20) K/uL Immature Gran # (Auto) 0.02 (0.01-0.20) K/uL PT 10.4 (9.0-12.0) Seconds INR 1.0 (0.9-1.1) APTT 25 (21-31) Seconds PTT Ratio 0.9 POC Sodium 140 (135-144) mmol/L Sodium 138 (136-145) mmol/L POC Potassium 3.8 (3.3-5.0) mmol/L Potassium 3.9 (3.5-5.1) mmol/L POC Chloride 103 (101-112) mmol/L Chloride 105 (98-107) mmol/L Carbon Dioxide 25 (21-32) mmol/L POC Total CO2 22 L (24-31) mmol/L Anion Gap 8 (3-11) POC Anion Gap 19.0 (16-25) mmol/L POC BUN 11 (7-18) mg/dl BUN 11 (6-23) mg/dl Creatinine 0.91 (0.6-1.2) mg/dl POC Creatinine 1.0 (0.6-1.3) mg/dl Est Cr Clr Drug Dosing Not Reportable Est GFR ( Amer) 77.3 ml/min Est GFR (Non-Af Amer) 66.7 ml/min BUN/Creatinine Ratio 12.1 (10-20) Glucose 99 (70-99(Fasting)) mg/dl POC Glucose (other) 100 H (70-99) mg/dl Calcium 9.0 (8.6-10.3) mg/dl POC Ioniz Calcium Carlos Eduardo 1.16 (1.12-1.32) mmol/l Magnesium 2.1 (1.7-2.4) mg/dl Total Bilirubin 0.3 (0.2-1.0) mg/dl AST 13 (13-39) U/L ALT 8 (7-52) U/L Alkaline Phosphatase 78 (34-104) U/L Troponin I High Sens 8.0 8.4 (0-14) pg/ml Total Protein 6.8 (6.0-8.3) gm/dl Albumin 4.2 (3.4-5.0) gm/dl Globulin 2.6 (2.5-4.0) gm/dl Albumin/Globulin Ratio 1.6 (0.9-2) Lipase 15 (11-82) U/L TSH 3.179 (0.300-4.500) uIu/ml Imaging Data Attestation: I personally reviewed and interpreted this imaging study as follows: Radiologist's Impression: Chest CTA 10/11/23 01:56 Exam(s): CTA CHEST IV Amt: 118 ml optiray 320 EXAM: CT Angiography Chest With Intravenous Contrast CLINICAL HISTORY: Reason for exam: Chest Pain, eval for PE. TECHNIQUE: Axial computed tomographic angiography images of the chest with intravenous contrast. CTDI is 17.95 mGy and DLP is 534.69 mGy-cm. Automated exposure control was utilized for the study. A dose lowering technique was utilized adhering to the principles of ALARA. MIP reconstructed images were created and reviewed. COMPARISON: No relevant prior studies available. FINDINGS: Pulmonary arteries: Unremarkable. No acute pulmonary embolism. Aorta: Atherosclerotic changes of the aorta. No thoracic aortic aneurysm. Lungs: Unremarkable. No mass. No consolidation. Pleural space: Unremarkable. No significant effusion. No pneumothorax. Heart: Unremarkable. No cardiomegaly. No significant pericardial effusion. No evidence of RV dysfunction. Bones/joints: Degenerative changes of the spine. Sternotomy wires. No acute fracture. No dislocation. Soft tissues: Unremarkable. Lymph nodes: Unremarkable. No enlarged lymph nodes. IMPRESSION: No acute pulmonary embolism. Electronically signed by: Buddy Jeffries MD 10/11/23 02:47 AM [facility] Narrative Prior records/ancillary studies reviewed. Triage Nursing notes reviewed. Additional history obtained from family. The patient's history was concerning for chest pain. Differential diagnosis: Etiologies such as cardiac ischemia, aortic dissection, pulmonary embolism, pneumonia, pneumothorax, musculoskeletal, infections, pericarditis, myocarditis, esophageal rupture, gastrointestinal, as well as others were entertained. Physical examination: As above. ER treatment provided: An order was placed for continuous cardiac monitoring. The monitor shows a rate of 50-90 with a sinus rhythm per my interpretation. Aspirin and nitroglycerin were ordered Heparin was initiated for NSTEMI On reassessment the patient felt better. Diagnostic interpretation by me: #1 the electrocardiogram was ordered for chest pain EKG: Normal sinus, T wave inversions in the anteroseptal lateral leads, rate of 56. EKG compared to prior EKG with no acute changes noted. Impression sinus bradycardia with unchanged T wave inversions independently interpreted by myself I think arrhythmia is unlikely. EKG shows normal sinus rhythm with no interval abnormalities such as QT prolongation or WPW. There are no findings to suggest Brugada syndrome. Cardiac monitoring in the emergency department reveals no tachycardic or bradycardic dysrhythmia. Hypertrophic cardiomyopathy was considered but there are no clear historical elements pointing toward this. EKG is not suggestive. The QRS voltage is not extremely large and there are no suggestive Q waves. EKG #2 ordered for chest pain EKG: Normal sinus, new T wave inversion in aVL, checkmark sign in the inferior leads, rate of 54. Impression sinus bradycardia with evolving changes in the inferior leads independently interpreted by myself EKG #3 ordered for chest pain EKG: Normal sinus, no new EKG changes from prior. Impression normal sinus rhythm with persistent T wave inversions independently interpreted by myself The labs Independently Interpreted by myself revealed negative troponin and repeat was ordered Stable H&H, no worrisome leukocytosis, euthyroid Imaging studies: Chest x-ray with no acute consolidation, pneumothorax or free air per my independent interpretation CTA was reviewed and read by radiology as above HEART SCORE: Hx: high/mod/low suspicion: 2 ECG: ST depression/nonspecific changes/normal: 1 Age: Greater than 65/45-64/less than 45: 1 Risk factors: (Hypertension, hyperlipidemia, diabetes, coronary disease, tobacco use, cocaine use): 2 Troponin: Greater than 2 times normal limits/1-2 times normal limits/normal: 0 Total: 6 Consultation: A consultation was placed with the hospitalist. The case was discussed and diagnostics were reviewed. The patient was evaluated in the ER for further treatment. Exam and history seen consistent with chest pain with concerns for unstable angina. Patient was started on heparin. First troponin was negative. Repeat was ordered. Patient had new evolving EKG changes while in the ER. Medicine was consulted and the case was discussed. She will be evaluated by the medical team for admission. By the evaluation outlined above emergent etiologies such as aortic dissection, pulmonary embolism, pneumonia, pneumothorax, infections, pericarditis, myocarditis, gastrointestinal, as well as others were deemed relatively unlikely. The pt informed about the findings as listed above. All questions were answered and pleased with the treatment. The chart was completed utilizing [employer] voice recognition software. Grammatical errors, random word insertions, pronoun errors, and incomplete sentences are an occassional consequence of this system due to software limitations, ambient noise, and hardware issues. Any formal questions or concerns about the content, text, or information contained within the body of this dictation should be directly addressed to the physician registered dental assistant rda for clarification. Impression & Plan Unstable angina Discharge Plan Visit Data Chief Complaint: Chest Pain Stated Complaint: CHEST PAIN,TROUBLE BREATHING,PALPITATIONS ED Provider: Richa Yates ED Midlevel Provider: Diane Wong Discharge Problem: Unstable angina Patient Disposition: Admitted As Inpatient Condition: Good Discharge Instructions Interventions: ED Discharge Assessment Last Done: 10/11/23 04:18 Forms Stand Alone Forms: [employer] Prescriptions Prescriptions: No Action tramadol 50 mg tablet 50 mg PO Q6H PRN (Reason: pain) Qty: 60 3RF lorazepam 0.5 mg tablet 0.5 mg PO TID PRN (Reason: anxiety) Qty: 30 3RF metoprolol tartrate 25 mg tablet 25 mg PO BID Qty: 180 3RF albuterol sulfate 90 mcg/actuation HFA aerosol inhaler 2 puff inhalation Q6H PRN (Reason: shortness of breath or wheezing) Qty: 8.5 2RF clobetasol 0.05 % cream 1 applic TOP BID PRN (Reason: Other) Rx Instructions: Apply to areas of the trunk and extremities twice daily x 2 weeks as directed. aspirin 81 mg Tablet,Delayed Release (Dr/Ec) 81 mg PO BID fluoxetine 40 mg capsule 40 mg PO QAM amlodipine 5 mg tablet 5 mg PO QAM pantoprazole 40 mg tablet,delayed release (DR/EC) 40 mg PO QAM ezetimibe-simvastatin 10-80 mg tablet 1 tab PO QPM fluticasone furoate-vilanterol [Breo Ellipta] 200-25 mcg/dose blister with device 1 inh inhalation QAM Rx Instructions: INHALE 1 PUFF BY MOUTH DAILY Referrals Referrals: Yoli Beaver MD [Primary Care Provider] -
[2023-10-11] MEDS: NITROGLYCERIN SL 0.4 MG/TAB TAB SL PRN (02:06)
[2023-10-11] MEDS: ASPIRIN CHEW 324 MG PO STA (02:08)
[2023-10-11 02:19] LABS: Basophils # (auto) 0.08 K/uL (0.00-0.20); Basophils % (auto) 0.8 %; Eosinophils # (auto) 0.38 K/uL (0.00-0.50); Eosinophils % (auto) 3.9 %; Hematocrit (blood only) 40.4 % (37.0-47.0); Hemoglobin 13.4 g/dl (12.0-16.0); Immature Granulocytes # (auto) 0.02 K/uL (0.01-0.20); Immature Granulocytes % (auto) 0.2 %; Lymphocytes # (auto) 2.53 K/uL (1.20-3.40); Lymphocytes % (auto) 25.8 %; Mean Corpuscular Hemoglobin 29.6 pg (25.0-34.0); Mean Corpuscular Hgb Conc 33.2 g/dL (32.0-36.0); Mean Corpuscular Volume 89.2 fL (80.0-100.0); Mean Platelet Volume 9.4 fL (9.4-12.4); Monocytes # (auto) 0.96 K/uL (0.11-0.59); Monocytes % (auto) 9.8 %; Neutrophils # (auto) 5.83 K/uL (1.40-6.50); Neutrophils % (auto) 59.5 %; Platelet Count 364 K/uL (130-400); RDW Coefficient of Variation 13.2 % (11.5-14.5); RDW Standard Deviation 42.9 fL (36.4-46.3); Red Blood Count 4.53 M/uL (4.20-5.40)
[2023-10-11 02:23] LABS: iSTAT Hemoglobin 12.9 g/dl (12.0-16.0); iSTAT Ionized Calcium 1.16 mmol/l (1.12-1.32); iSTAT Potassium 3.8 mmol/L (3.3-5.0)
[2023-10-11] MEDS: ACETAMINOPHEN 1,000 MG/100 ML VIAL IV STA (02:25)
[2023-10-11 02:35] LABS: Alanine Aminotransferase 8 U/L (7-52); Albumin Globulin Ratio 1.6 (0.9-2); Albumin Level 4.2 gm/dl (3.4-5.0); Alkaline Phosphatase 78 U/L (34-104); Anion Gap 8 (3-11); Aspartate Aminotransferase 13 U/L (13-39); BUN Creatinine Ratio 12.1 (10-20); Bilirubin,Total 0.3 mg/dl (0.2-1.0); Blood Urea Nitrogen 11 mg/dl (6-23); Carbon Dioxide 25 mmol/L (21-32); Chloride 105 mmol/L (98-107); Est GFR (African American) 77.3 ml/min; Est GFR (Non-African American) 66.7 ml/min; Globulin 2.6 gm/dl (2.5-4.0); Glucose 99 mg/dl (70-99(Fasting)); Lipase 15 U/L (11-82); Magnesium 2.1 mg/dl (1.7-2.4); Potassium 3.9 mmol/L (3.5-5.1); Sodium 138 mmol/L (136-145); Total Protein 6.8 gm/dl (6.0-8.3)
[2023-10-11] MEDS: OPTIRAY 320 125ml IV ONE (02:38)
--- NOTE | 2023-10-11 02:47 | CT Scan Report ---
Exam(s): CTA CHEST IV Amt: 118 ml optiray 320 EXAM: CT Angiography Chest With Intravenous Contrast CLINICAL HISTORY: Reason for exam: Chest Pain, eval for PE. TECHNIQUE: Axial computed tomographic angiography images of the chest with intravenous contrast. CTDI is 17.95 mGy and DLP is 534.69 mGy-cm. Automated exposure control was utilized for the study. A dose lowering technique was utilized adhering to the principles of ALARA. MIP reconstructed images were created and reviewed. COMPARISON: No relevant prior studies available. FINDINGS: Pulmonary arteries: Unremarkable. No acute pulmonary embolism. Aorta: Atherosclerotic changes of the aorta. No thoracic aortic aneurysm. Lungs: Unremarkable. No mass. No consolidation. Pleural space: Unremarkable. No significant effusion. No pneumothorax. Heart: Unremarkable. No cardiomegaly. No significant pericardial effusion. No evidence of RV dysfunction. Bones/joints: Degenerative changes of the spine. Sternotomy wires. No acute fracture. No dislocation. Soft tissues: Unremarkable. Lymph nodes: Unremarkable. No enlarged lymph nodes. IMPRESSION: No acute pulmonary embolism. Electronically signed by: Buddy Jeffries MD 10/11/23 02:47 AM
[2023-10-11 02:50] LABS: Thyroid Stimulating Hormone 3.179 uIu/ml (0.300-4.500)
[2023-10-11] MEDS ORDERED: Heparin IV Adult Wt-Based Standard w/ INITIAL Bolus Protocol IV STA (03:12)
[2023-10-11] MEDS ORDERED: HEPARIN SOD (PORCINE) 1000 UNIT/ML IV ONE (03:28)
[2023-10-11 03:29] LABS: Partial Thromboplastin Ratio 0.9; Partial Thromboplastin Time 25 Seconds (21-31); Prothrombin Time 10.4 Seconds (9.0-12.0)
[2023-10-11] MEDS: HEPARIN SOD (PORCINE) 1000 UNIT/ML IV ONE (03:37)
[2023-10-11] MEDS: HEPARIN SODIUM/DEXTROSE 25,000 UNITS/500 ML BAG IV SCH (03:38)
[2023-10-11] MEDS: fentaNYL citrate PF 100 MCG/2 ML VIAL IV PRN (03:38)
[2023-10-11] MEDS: SODIUM CHLORIDE 0.9% 500 ML IV ONE (03:39)
--- NOTE | 2023-10-11 03:47 | History & Physical Report ---
Date of Service October 11, 2023 Assessment & Plan (1) Unstable angina: (2) CAD (coronary artery disease): (3) Hypertension: (4) NSTEMI (non-ST elevated myocardial infarction): (5) Carotid arterial disease: (6) Spinal stenosis of lumbar region with radiculopathy: (7) GERD without esophagitis: (8) Nicotine dependence: (9) Anxiety: Plan: Unstable angina/CAD/hypertension/history of NSTEMI- The patient will be admitted to telemetry for serial cardiac enzymes, serial EKG's, cardiac rhythm monitoring and a 2-D echocardiogram with Dopplers. Patient had multiple EKGs in the emergency department EKG showed progressive ST depression and T wave inversions in lateral chest leads Second EKG showed 0.5mm ST elevations in inferior leads, II, III, and aVF Patient did have episodes of bradycardia into the low to mid 40s, and then returns to baseline heart rate of 60 Patient had been given sublingual nitroglycerin, which reportedly had a significant drop in her blood pressure The patient did receive aspirin 324 mg and Tylenol 1 g IV Recommend patient to be started on heparin drip with bolus protocol Given a 500 cc bolus with normal saline by the ED NSS + KCl 20 mEq at 80 mL/h x 1 L Continue, amlodipine, metoprolol tartrate Consult to cardiology Dyslipidemia- Patient will continue on Zetia/simvastatin She reports a rash with severe itching to both atorvastatin and rosuvastatin Check a fasting lipid panel and hemoglobin A1c Tobacco use disorder/COPD- Cessation counseling Continue Breo elliptica and albuterol sulfate HFA Patient reports that she does not need a nicotine patch GERD- Continue pantoprazole Anxiety- Continue fluoxetine daily and lorazepam 3 times daily as needed Chronic pain syndrome/lumbar spinal stenosis with radiculopathy- Acetaminophen 650 mg by mouth every 6 hours as needed for mild pain or fever Continue tramadol 50 mg by mouth every 6 hours as needed for moderate pain (10) Dyslipidemia: History of Present Illness Chief Complaint: The patient presents to the emergency department with complaint of substernal chest pain and shortness of breath that kept her from sleeping this evening, after a usual day of mowing 4 acres of lawn at her home on her riding mower. Primary Care Provider: Yoli Beaver MD The patient is a 63-year-old female with a past medical history including partial rotator cuff tear, right shoulder impingement, carotid arterial disease, BPPV, dyslipidemia, lumbar spinal stenosis with maculopathy anxiety, greater than esophagitis, nicotine dependence, CAD, NSTEMI history and hypertension. She presents to the emergency department with substernal chest pain and shortness of breath that kept her from falling asleep this evening, after mowing her lawn earlier in the day today. With pain when she initially presented to the emergency department was at level 7, at the time my examination at the level 5. Allergies Allergy/AdvReac Type Severity Reaction Status Date / Time atorvastatin AdvReac Mild Rash Verified 10/11/23 02:20 rosuvastatin [From Crestor] AdvReac Mild Rash Verified 10/11/23 02:20 Home Medications Medication Instructions Recorded Confirmed Type clobetasol 0.05 % topical cream 1 applic topical BID PRN Other 09/21/22 10/11/23 History tramadol 50 mg tablet 50 mg PO Q6H PRN pain #60 tabs 11/30/22 10/11/23 Rx lorazepam 0.5 mg tablet 0.5 mg PO TID PRN anxiety #30 tabs 12/25/22 10/11/23 Rx albuterol sulfate 90 mcg/actuation 2 puff inhalation Q6H PRN 03/31/23 10/11/23 Rx aerosol inhaler shortness of breath or wheezing #8.5 grams metoprolol tartrate 25 mg tablet 25 mg PO BID #180 tabs 06/23/23 10/11/23 Rx amlodipine 5 mg tablet 5 mg PO QAM 10/05/23 10/11/23 History ezetimibe 10 mg-simvastatin 80 mg 1 tab PO QPM 10/05/23 10/11/23 History tablet fluoxetine 40 mg capsule 40 mg PO QAM 10/05/23 10/11/23 History fluticasone furoate 200 1 inh inhalation QAM 10/05/23 10/11/23 History mcg-vilanterol 25 mcg/dose inhalation powder (Breo Ellipta) pantoprazole 40 mg tablet,delayed 40 mg PO QAM 10/05/23 10/11/23 History release aspirin 81 mg tablet,delayed 81 mg PO BID 10/11/23 10/11/23 History release Past Med/Surg History Problem List (Updated 10/11/23 @ 04:07 by Rick Fan MD) COPD (chronic obstructive pulmonary disease) Unstable angina (Acute) Biceps tendonitis on right Subacromial bursitis Partial thickness rotator cuff tear Disorder of rotator cuff Impingement of right shoulder Right rotator cuff tendinitis Left elbow pain Carpal tunnel syndrome, right Right hand paresthesia Carotid arterial disease Trochanteric bursitis of left hip (Chronic) BPPV (benign paroxysmal positional vertigo) (Chronic) Dyslipidemia (Chronic) Spinal stenosis of lumbar region with radiculopathy (Chronic) Anxiety (Chronic) Diverticulosis (Chronic) GERD without esophagitis (Chronic) Nicotine dependence (Chronic) CAD (coronary artery disease) (Chronic) h/o 4 v. CABG 2013 NSTEMI (non-ST elevated myocardial infarction) (Chronic 12/17/13) Hypertension (Chronic) Medical History CAD (coronary artery disease) Partial thickness rotator cuff tear Subacromial bursitis Biceps tendonitis on right Trochanteric bursitis of left hip Diverticulosis GERD (gastroesophageal reflux disease) Hypertension Hx of vertigo Spinal stenosis of lumbar region with radiculopathy COPD (chronic obstructive pulmonary disease) Carotid arterial disease Hx of colonic polyp Dyslipidemia Anxiety Hx of non-ST elevation myocardial infarction (NSTEMI) (2013) Surgical History Hx of colonoscopy with polypectomy History of bilateral carpal tunnel release right at [facility] 2023 left at [facility] 2015 Hx of cardiac cath (2013) [place] to [facility] for cabg x 4 had second cath at [facility] after cabg, no furhter issues S/P CABG (coronary artery bypass graft) (~2013) 4 vessel CABG -[facility]- curt tidwell 10/11/23 History of section (1985) History of cataract surgery b/l, > 10 years ago History of foot surgery left foot, bunionectomy, surgery on 2nd toe, > 10 years ago Family History Mother Myocardial infarction Father Myocardial infarction Denies family history of Ovarian cancer Prostate cancer Breast cancer Colorectal cancer Social History Smoking Status: Current every day smoker Tobacco Type: Cigarettes Age Started Using Tobacco: 29; packs per day: 0.5; Cigarettes Per Day: 1 ppd (advised); Second Hand Exposure: No; Do You Dip or Chew Tobacco: No; Hx Alcohol Use: No Hx Substance Use: No Preferred Language: Turkish Communication Ability: Effective Visual Impairment: No Limitations Hearing Ability: Normal Baseball Pitcher Required: No Beliefs That Will Affect Care: None marital status: Current Living Situation: Spouse current occupational status: unemployed Feels Safe at Home: Yes Childhood Exposure to Second-Hand Smoke: No caffeine: Yes (coffee daily) Dental Care, Regularly: No Physical Activity Frequency: Daily Physical Activity Frequency Comment: walks daily as able with back issues Seatbelt Use: always Sunscreen Use: No Assistive Devices: Denture - Upper, Denture - Lower and Glasses Review of Systems Review of Systems: The patient denies palpitations, cough, lower extremity swelling, sore throat, fevers, chills, sweats, nausea, vomiting, diarrhea , constipation, abdominal pain, pelvic pain, blood in urine or stool, dysuria, urinary frequency or urgency, lightheadedness, dizziness, headache, memory loss, loss of consciousness, rash, abnormal bruising or bleeding, imbalance, focal or generalized weakness, numbness or tingling in arms or legs, generalized arthralgias or myalgias, back or neck pain, or night sweats. The review of systems is otherwise negative other than for that already noted above, and at least 10 systems have been reviewed. Physical Exam Physical Exam: The patient is awake, alert and oriented 3, well developed and well nourished, normocephalic and atraumatic, lying in bed and in no acute distress. HEENT--PERRL, EOMI, mucous membranes and oropharynx mildly dry. Neck--supple. No JVD. No bruits. Thyroid normal, trachea midline, no adenopathy. Heart--normal S1 and S2. No murmurs, rubs or gallops. Lungs--clear bilaterally, no respiratory distress, no accessory muscle use. Abdomen--normal bowel sounds and soft. Nontender. Nondistended, no hernias or masses, no organomegaly. Extremities--No edema. Dermatologic--normal skin turgor, normal color, no abnormal lymph nodes, no rash. Neurologic--cranial nerves II through XII grossly intact. Rheumatologic--normal range of motion. Psychiatric--normal affect. Results & Data Results & Data Vital Signs (Past 12 Hours) Vital Signs Temp Pulse Pulse Resp BP BP Pulse Ox 10/11/23 02:45 60 16 134/76 97 10/11/23 02:10 117/62 10/11/23 02:10 117/62 10/11/23 02:10 62 16 117/62 95 10/11/23 02:09 58 L 17 95 10/11/23 02:03 66 22 10/11/23 01:56 180/87 H 10/11/23 01:56 180/87 H 10/11/23 01:54 68 19 10/11/23 01:53 68 10/11/23 01:43 36.5 C 55 L 18 180/91 H 98 O2 Del Method 10/11/23 02:45 Room Air 10/11/23 02:10 10/11/23 02:10 10/11/23 02:10 Room Air 10/11/23 02:09 10/11/23 02:03 10/11/23 01:56 10/11/23 01:56 10/11/23 01:54 10/11/23 01:53 10/11/23 01:43 Room Air Laboratory Results Laboratory Results WBC 9.80 K/ul (4.8-10.8) 10/11/23 01:55 RBC 4.53 M/uL (4.20-5.40) 10/11/23 01:55 Hgb 13.4 g/dl (12.0-16.0) 10/11/23 01:55 POC Hgb 12.9 g/dl (12.0-16.0) 10/11/23 02:09 Hct 40.4 % (37.0-47.0) 10/11/23 01:55 POC Hct 38 % (37-47) 10/11/23 02:09 MCV 89.2 fL (80.0-100.0) 10/11/23 01:55 MCH 29.6 pg (25.0-34.0) 10/11/23 01:55 MCHC 33.2 g/dL (32.0-36.0) 10/11/23 01:55 RDW Std Deviation 42.9 fL (36.4-46.3) 10/11/23 01:55 RDW Coeff of Kike 13.2 % (11.5-14.5) 10/11/23 01:55 Plt Count 364 K/uL (130-400) 10/11/23 01:55 MPV 9.4 fL (9.4-12.4) 10/11/23 01:55 Immature Gran % (Auto) 0.2 % 10/11/23 01:55 Neut % (Auto) 59.5 % 10/11/23 01:55 Lymph % (Auto) 25.8 % 10/11/23 01:55 [place] % (Auto) 9.8 % 10/11/23 01:55 Eos % (Auto) 3.9 % 10/11/23 01:55 Baso % (Auto) 0.8 % 10/11/23 01:55 Neut # (Auto) 5.83 K/uL (1.40-6.50) 10/11/23 01:55 Lymph # (Auto) 2.53 K/uL (1.20-3.40) 10/11/23 01:55 [place] # (Auto) 0.96 K/uL (0.11-0.59) H 10/11/23 01:55 Eos # (Auto) 0.38 K/uL (0.00-0.50) 10/11/23 01:55 Baso # (Auto) 0.08 K/uL (0.00-0.20) 10/11/23 01:55 Immature Gran # (Auto) 0.02 K/uL (0.01-0.20) 10/11/23 01:55 PT 10.4 Seconds (9.0-12.0) 10/11/23 01:55 INR 1.0 (0.9-1.1) 10/11/23 01:55 APTT 25 Seconds (21-31) 10/11/23 01:55 PTT Ratio 0.9 10/11/23 01:55 POC Sodium 140 mmol/L (135-144) 10/11/23 02:09 Sodium 138 mmol/L (136-145) 10/11/23 01:55 POC Potassium 3.8 mmol/L (3.3-5.0) 10/11/23 02:09 Potassium 3.9 mmol/L (3.5-5.1) 10/11/23 01:55 POC Chloride 103 mmol/L (101-112) 10/11/23 02:09 Chloride 105 mmol/L (98-107) 10/11/23 01:55 Carbon Dioxide 25 mmol/L (21-32) 10/11/23 01:55 POC Total CO2 22 mmol/L (24-31) L 10/11/23 02:09 Anion Gap 8 (3-11) 10/11/23 01:55 POC Anion Gap 19.0 mmol/L (16-25) 10/11/23 02:09 POC BUN 11 mg/dl (7-18) 10/11/23 02:09 BUN 11 mg/dl (6-23) 10/11/23 01:55 Creatinine 0.91 mg/dl (0.6-1.2) 10/11/23 01:55 POC Creatinine 1.0 mg/dl (0.6-1.3) 10/11/23 02:09 Est Cr Clr Drug Dosing Not Reportable 10/11/23 01:55 Est GFR ( Amer) 77.3 ml/min 10/11/23 01:55 Est GFR (Non-Af Amer) 66.7 ml/min 10/11/23 01:55 BUN/Creatinine Ratio 12.1 (10-20) 10/11/23 01:55 Glucose 99 mg/dl (70-99(Fasting)) 10/11/23 01:55 POC Glucose (other) 100 mg/dl (70-99) H 10/11/23 02:09 Calcium 9.0 mg/dl (8.6-10.3) 10/11/23 01:55 POC Ioniz Calcium Carlos Eduardo 1.16 mmol/l (1.12-1.32) 10/11/23 02:09 Magnesium 2.1 mg/dl (1.7-2.4) 10/11/23 01:55 Total Bilirubin 0.3 mg/dl (0.2-1.0) 10/11/23 01:55 AST 13 U/L (13-39) 10/11/23 01:55 ALT 8 U/L (7-52) 10/11/23 01:55 Alkaline Phosphatase 78 U/L (34-104) 10/11/23 01:55 Troponin I High Sens 8.0 pg/ml (0-14) 10/11/23 01:55 Total Protein 6.8 gm/dl (6.0-8.3) 10/11/23 01:55 Albumin 4.2 gm/dl (3.4-5.0) 10/11/23 01:55 Globulin 2.6 gm/dl (2.5-4.0) 10/11/23 01:55 Albumin/Globulin Ratio 1.6 (0.9-2) 10/11/23 01:55 Lipase 15 U/L (11-82) 10/11/23 01:55 TSH 3.179 uIu/ml (0.300-4.500) 10/11/23 01:55 Impressions Chest CTA 10/11/23 01:56 Exam(s): CTA CHEST IV Amt: 118 ml optiray 320 EXAM: CT Angiography Chest With Intravenous Contrast CLINICAL HISTORY: Reason for exam: Chest Pain, eval for PE. TECHNIQUE: Axial computed tomographic angiography images of the chest with intravenous contrast. CTDI is 17.95 mGy and DLP is 534.69 mGy-cm. Automated exposure control was utilized for the study. A dose lowering technique was utilized adhering to the principles of ALARA. MIP reconstructed images were created and reviewed. COMPARISON: No relevant prior studies available. FINDINGS: Pulmonary arteries: Unremarkable. No acute pulmonary embolism. Aorta: Atherosclerotic changes of the aorta. No thoracic aortic aneurysm. Lungs: Unremarkable. No mass. No consolidation. Pleural space: Unremarkable. No significant effusion. No pneumothorax. Heart: Unremarkable. No cardiomegaly. No significant pericardial effusion. No evidence of RV dysfunction. Bones/joints: Degenerative changes of the spine. Sternotomy wires. No acute fracture. No dislocation. Soft tissues: Unremarkable. Lymph nodes: Unremarkable. No enlarged lymph nodes. IMPRESSION: No acute pulmonary embolism. Electronically signed by: Buddy Jeffries MD 10/11/23 02:47 AM Code Status & VTE Plan Code Status Full code VTE Prophylaxis Plan VTE Prophylaxis will be ordered: Yes PG Care Time/CCT Total # of Minutes Spent Total Time Spent with Patient: Total time spent is greater than 50% in coordination of care (as documented) at patient's floor/unit and/or counseling patient: Coding Level of Care Code 75527 INT INP/OBS CARE 3/75MIN Diagnoses Unstable angina I20.0 Coronary artery disease involving [place] coronary artery of [place] heart without angina pectoris I25.10 Coronary Disease-Associated Artery/Lesion type: [place] artery [place] vs. transplanted heart: [place] heart Associated angina: without angina Primary hypertension I10 Hypertension type: primary hypertension NSTEMI (non-ST elevated myocardial infarction) I21.4 Bilateral carotid artery stenosis I65.23 Carotid artery disease type: stenosis Laterality: bilateral Spinal stenosis of lumbar region with radiculopathy M48.061; M54.16 GERD without esophagitis K21.9 Nicotine dependence F17.200 Nicotine product type: cigarettes Anxiety F41.9 Dyslipidemia E78.5 (2) CAD (coronary artery disease) Coronary Disease-Associated Artery/Lesion type: [place] artery [place] vs. transplanted heart: [place] heart Associated angina: without angina Qualified Code(s): I25.10 - Atherosclerotic heart disease of [place] coronary artery without angina pectoris (3) Hypertension Hypertension type: primary hypertension Qualified Code(s): I10 - Essential (primary) hypertension (5) Carotid arterial disease Carotid artery disease type: stenosis Laterality: bilateral Qualified Code(s): I65.23 - Occlusion and stenosis of bilateral carotid arteries (8) Nicotine dependence Nicotine product type: cigarettes
[2023-10-11] MEDS ORDERED: LORazepam 0.5 MG TAB PO PRN (04:45)
[2023-10-11] MEDS ORDERED: CLOBETASOL PROPIONATE 0.05% CREAM 15 GM TUBE TOP PRN (04:45)
[2023-10-11] MEDS ORDERED: ALBUTEROL HFA 8 GM INHALER INH PRN (04:45)
[2023-10-11] MEDS ORDERED: ACETAMINOPHEN 325 MG TAB PO PRN (04:45)
[2023-10-11] MEDS ORDERED: traMADol HCL 50 MG TABLET PO PRN (04:45)
[2023-10-11] MEDS ORDERED: ONDANSETRON INJ 2 MG/ML 2 ML VIAL IV PRN (04:45)
[2023-10-11] MEDS: NSS + 20MEQ KCL 20 MEQ/1,000 ML BAG IV SCH (05:15)
--- NOTE | 2023-10-11 06:50 | XRay Report ---
XR chest 1V portable CLINICAL HISTORY: Chest pain, nonspecific TECHNIQUE: Single frontal radiograph of the chest was obtained. Comparison: Comparison is made to chest radiograph 10/16/2021 FINDINGS: Median sternotomy wires are unchanged. Cardiomegaly is noted. The aortic arch is calcified. The lungs are clear. No evidence of pleural effusion or pneumothorax. IMPRESSION: No acute chest disease. Cardiomegaly is noted. ACT 112: Negative or not required by law. Electronically signed by: Trent Sadler M.D. 10/11/2023 6:48 AM
[2023-10-11 06:59] LABS: Troponin I High Sensitivity 8.8 pg/ml (0-14)
[2023-10-11 07:36] LABS: Estimated Average Glucose 123 mg/dl; Hemoglobin A1C 5.9 % (4.5-5.6)
[2023-10-11] MEDS ORDERED: PNEUMOCOCCAL VACCINE (PCV20) 20-VAL CONJ-DIP CRM/PF 0.5 ML SYR IM ONE (08:00)
[2023-10-11] MEDS: amLODIPine BESYLATE 5 MG TAB PO SCH (08:18)
[2023-10-11] MEDS: FLUTICASONE/VILANTEROL 200/25MCG 14 PUFFS/INHALER INH SCH (08:18)
[2023-10-11] MEDS: FLUoxetine HCL 20 MG CAP PO SCH (08:18)
[2023-10-11] MEDS: PANTOprazole 40 MG TAB PO SCH (08:19)
[2023-10-11] MEDS: ASPIRIN 81 MG ECTAB PO SCH (08:19)
[2023-10-11] MEDS: METOPROLOL TARTRATE 25 MG TAB PO SCH (08:19)
--- NOTE | 2023-10-11 09:27 | Cardiology Consultation ---
Date of Consultation October 11, 2023 Assessment & Plan (1) Chest pressure: (2) CAD (coronary artery disease): (3) Hypertension: (4) Dyslipidemia: (5) Nicotine dependence: Plan Mrs. 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 Patient was in her usual state of health all day yesterday, she mowed her 4 acre lawn and felt well with her usual degree of exertional dyspnea secondary to her underlying COPD. Last evening, while at a state of rest, she developed pressure in her upper chest which radiated to her left shoulder and she had associated dyspnea. She tried using her inhaler but that did not seem to help. It was not worse with exertion, nor did it improve with rest. She tried to fall asleep last night but her symptoms persisted to the point she could not fall asleep. After discussing her symptoms with her , he brought her to [facility] ER, they left their home after midnight. When she initially presented she rated her pain at 7/10, when she saw the admitting provider she rated her discomfort at 5/10. She currently denies any current chest pressure or dyspnea. In total, her symp toms lasted several hours. Her symptoms were reminiscent of her prior angina pectoris. Patient was started on a Heparin drip and otherwise maintained on her usual cardiac regimen. Her initial high sensitivity Troponin I level was 8.0 pg/mL, with subsequent values being 8.0, 8.4, and 8.8 pg/mL. WBC# is 9.8, Hgb 13.4 g/dL, Hct is 40.4%. Serum potassium is normal at 3.9 mmol/L, BUN 11 mg/dL, and serum creatinine is 0.91 mg/dL. Total Cholesterol is 133 mg/dL, LDL 75 mg/dL, and her HDL is 45 mg/dL. TC:HDL ratio is 3.0. EKG's have shown sinus rhythm with age indeterminate inferior infarct cited on or before 12/16/2013, S-T and T wave abnormality, consider anterolateral ischemia. No significant change when compared to 10/16/21 tracing. gambling monitor has shown sinus bradycardia overnight with HR's in the upper 40's and low 50's. CXR shows cardiomegaly without acute cardiopulmonary processes. CTA Chest shows no evidence of pulmonary embolism. Echocardiogram 10/11/23 showed normal LV size, wall motion, and LV systolic function, mild concentric LVH, and mild mitral regurgitation. Patient presented with chest pressure and dyspnea reminiscent of her angina pectoris -- however her high sensitivity Troponin I levels are not consistent with myocardial ischemia or infarct. Her baseline EKG is abnormal but it is stable. Her blood pressure is controlled and her lipids/LDL are at goal range. Her Echo shows normal LV systolic function with normal wall motion. However since she has had these symptoms, has known CAD s/p CABG, and she has an upcoming surgery planned -- I have ordered a Stress Echocardiogram (Quad screen&go). Provided her stress echocardiogram shows no ischemia or only limited ischemia -- patient may proceed with shoulder surgery as scheduled. Continue her current cardiac regimen otherwise including beta-sabrina, calcium channel sabrina, anti-platelet, and combination statin with Zetia. Patient agrees with our plan. I discussed this case with Dr. Bledsoe. History of Present Illness Reason for Consultation: -- Chest Pressure and Dyspnea. -- CAD s/p CABG x 4 vessels 12/18/2013. Requesting Physician: Orestes Groves DO Attending Physician: Rudy Bledsoe MD History of Present Illness Mrs. 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 Patient was in her usual state of health all day yesterday, she mowed her 4 acre lawn and felt well with her usual degree of exertional dyspnea secondary to her underlying COPD. Last evening, while at a state of rest, she developed pressure in her upper chest which radiated to her left shoulder and she had associated dyspnea. She tried using her inhaler but that did not seem to help. It was not worse with exertion, nor did it improve with rest. She tried to fall asleep last night but her symptoms persisted to the point she could not fall asleep. After discussing her symptoms with her , he brought her to [facility] ER, they left their home after midnight. When she initially presented she rated her pain at 7/10, when she saw the admitting provider she rated her discomfort at 5/10. She currently denies any current chest pressure or dyspnea. In total, her symptoms lasted several hours. Her symptoms were reminiscent of her prior angina pectoris. Patient was started on a Heparin drip and otherwise maintained on her usual cardiac regimen. Her initial high sensitivity Troponin I level was 8.0 pg/mL, with subsequent values being 8.0, 8.4, and 8.8 pg/mL. WBC# is 9.8, Hgb 13.4 g/dL, Hct is 40.4%. Serum potassium is normal at 3.9 mmol/L, BUN 11 mg/dL, and serum creatinine is 0.91 mg/dL. Total Cholesterol is 133 mg/dL, LDL 75 mg/dL, and her HDL is 45 mg/dL. TC:HDL ratio is 3.0. EKG's have shown sinus rhythm with age indeterminate inferior infarct cited on or before 12/16/2013, S-T and T wave abnormality, consider anterolateral ischemia. No significant change when compared to 10/16/21 tracing. gambling monitor has shown sinus bradycardia overnight with HR's in the upper 40's and low 50's. CXR shows cardiomegaly without acute cardiopulmonary processes. CTA Chest shows no evidence of pulmonary embolism. Patient is compliant with her current medications. She denies any bleeding comp lications from Aspirin therapy. Patient still smokes cigarettes and is now interested in quitting. CAROTID DOPPLER 07/08/22: -- <50% bilateral ICA stenoses, both -- Antegrade flow in bilateral vertebral arteries. HISTORICAL BACKGROUND: Patient's cardiac history dates back to 12/16/2013 when she presented acutely to [facility] ER with progressive exertional left shoulder and left arm pain which began to occur at rest. She was diagnosed with an NSTEMI by cardiac enzymes, but had normal LV systolic function on echocardiogram. CARDIAC CATHETERIZATION 12/18/2013: 1. LMCA -- 80% distal left main stenosis. 2. LAD -- 70% proximal stenosis followed by diffuse 10%-30% stenoses. No disease of the mid or distal vessel. 3. D1 -- Diffuse luminal irregularities. 4. D2 -- Diffuse Luminal irregularities. 5. LCx -- 20% proximal stenosis, 10%-20% diffuse mid vessel stenoses, and 10%- 20% stenosis distal vessel. 6. OM1 -- 20-30% ostial stenosis. 7. OM2 -- No disease. 8. RCA -- Dominant vessel. 30% proximal stenoses, luminal irregularities mid vessel, and 80%-90% distal RCA stenosis involving the bifurcation into the PDA and ANA LUISA. 9. PDA -- 90% ostial stenosis. Patient was transferred to [facility] where she underwent CABG 4 vessels on 12/18/2013. This included: 1. ORTIZ to LAD. 2. SVG to LCx. 3. SVG to PDA. 4. SVG to ANA LUISA. Surgery complicated by postoperative atrial fibrillation. She did develop postoperative EKG changes and underwent repeat cardiac catheterization the following day. All of her grafts were patent, but there was sluggish flow in her posterior lateral artery distally. Medical management was instituted. Patient presented to [facility] ER on 10/16/21 complain orthopnea, shortness of breath, and peripheral edema over the preceding 1-2 weeks. Her chest x-ray was unrema rkable but she had a mildly elevated BNP of 268 pg/mL. She was given oral Lasix and Potassium Chloride in the ER, and then was discharged on Lasix 20 mg daily and Potassium Chloride 20 mEq daily. Allergies Allergy/AdvReac Type Severity Reaction Status Date / Time atorvastatin AdvReac Mild Rash Verified 10/11/23 02:20 rosuvastatin [From Crestor] AdvReac Mild Rash Verified 10/11/23 02:20 Home Medications Medication Instructions Recorded Confirmed Type clobetasol 0.05 % topical cream 1 applic topical BID PRN Other 09/21/22 10/11/23 History tramadol 50 mg tablet 50 mg PO Q6H PRN pain #60 tabs 11/30/22 10/11/23 Rx lorazepam 0.5 mg tablet 0.5 mg PO TID PRN anxiety #30 tabs 12/25/22 10/11/23 Rx albuterol sulfate 90 mcg/actuation 2 puff inhalation Q6H PRN 03/31/23 10/11/23 Rx aerosol inhaler shortness of breath or wheezing #8.5 grams metoprolol tartrate 25 mg tablet 25 mg PO BID #180 tabs 06/23/23 10/11/23 Rx amlodipine 5 mg tablet 5 mg PO QAM 10/05/23 10/11/23 History ezetimibe 10 mg-simvastatin 80 mg 1 tab PO QPM 10/05/23 10/11/23 History tablet fluoxetine 40 mg capsule 40 mg PO QAM 10/05/23 10/11/23 History fluticasone furoate 200 1 inh inhalation QAM 10/05/23 10/11/23 History mcg-vilanterol 25 mcg/dose inhalation powder (Breo Ellipta) pantoprazole 40 mg tablet,delayed 40 mg PO QAM 10/05/23 10/11/23 History release aspirin 81 mg tablet,delayed 81 mg PO BID 10/11/23 10/11/23 History release Patient History Medical History CAD (coronary artery disease) Partial thickness rotator cuff tear Subacromial bursitis Biceps tendonitis on right Trochanteric bursitis of left hip Diverticulosis GERD (gastroesophageal reflux disease) Hypertension Hx of vertigo Spinal stenosis of lumbar region with radiculopathy Carotid arterial disease Hx of colonic polyp Dyslipidemia Anxiety Hx of non-ST elevation myocardial infarction (NSTEMI) (2013) Surgical History Hx of colonoscopy with polypectomy History of bilateral carpal tunnel release right at [facility] 2023 left at [facility] 2015 Hx of cardiac cath (2013) [place], to [facility] for cabg x 4 had second cath at [facility] after cabg, no furhter issues S/P CABG (coronary artery bypass graft) (~2013) 4 vessel CABG -[facility]- [facility] 10/11/23 History of section (1985) History of cataract surgery b/l, > 10 years ago History of foot surgery left foot, bunionectomy, surgery on 2nd toe, > 10 years ago Family History Mother Myocardial infarction Father Myocardial infarction Denies family history of Ovarian cancer Prostate cancer Breast cancer Colorectal cancer Social History Smoking Status: Current every day smoker Tobacco Type: Cigarettes Age Started Using Tobacco: 29; packs per day: 0.5; Cigarettes Per Day: 1pack/ day; Second Hand Exposure: No; Do You Dip or Chew Tobacco: No; Hx Alcohol Use: No Hx Substance Use: No Preferred Language: Bhutanese Communication Ability: Effective Visual Impairment: No Limitations Hearing Ability: Normal Boarding Specialist Required: No Beliefs That Will Affect Care: None marital status: Current Living Situation: Spouse current occupational status: unemployed Feels Safe at Home: Yes Safety Concerns: Feels Safe At This Time Childhood Exposure to Second-Hand Smoke: No caffeine: Yes (coffee daily) Dental Care, Regularly: No Physical Activity Frequency: Daily Physical Activity Frequency Comment: walks daily as able with back issues Seatbelt Use: always Sunscreen Use: No Assistive Devices: Denture - Upper, Denture - Lower and Glasses Review of Systems Review of Systems: -- Patient is scheduled for rotator cuff repair on 11/04/23, she was actually on my outpatient schedule at 1600 today for preop cardiac evaluation. -- As per HPI. Physical Exam Physical Exam: Blood pressure 120/70, pulse 50 bpm and regular. General: Patient is in no acute distress. HEENT: Facies are symmetric. EOM's intact. Sclerae anicteric. No perioral cyanosis. Neck: No JVD. JVP is not elevated. Carotid upstrokes are +2 bilaterally without bruits. Chest and Lungs: Diminished breath sounds throughout but otherwise clear. No rales or crackles. CVS: S1 and S2 are regular bradycardic without murmurs, gallops, or rubs. PMI is nonpalpable. No lifts, heaves, or thrills. No abdominal aortic or renal bruits. Abdominal Exam: Bowel sounds are present. Extremities: No clubbing or cyanosis. Radial pulses are +2 bilaterally. Neurologic Exam: Patient is awake, alert, and oriented. Pleasant and cooperative. Answers questions appropriately. Speech is clear. Results & Data Vital Signs (Past 12 Hours) Vital Signs Temp Pulse Pulse Resp BP BP Pulse Ox 10/11/23 08:14 36.4 C L 53 L 18 120/70 96 10/11/23 04:46 49 L 10/11/23 04:35 36.4 C L 53 L 16 150/86 H 97 10/11/23 04:18 60 20 149/84 H 95 10/11/23 02:45 60 16 134/76 97 10/11/23 02:10 117/62 10/11/23 02:10 117/62 10/11/23 02:10 62 16 117/62 95 10/11/23 02:09 58 L 17 95 10/11/23 02:03 66 22 10/11/23 01:56 180/87 H 10/11/23 01:56 180/87 H 10/11/23 01:54 68 19 10/11/23 01:53 68 10/11/23 01:43 36.5 C 55 L 18 180/91 H 98 O2 Del Method 10/11/23 08:14 Room Air 10/11/23 04:46 10/11/23 04:35 Room Air 10/11/23 04:18 Room Air 10/11/23 02:45 Room Air 10/11/23 02:10 10/11/23 02:10 10/11/23 02:10 Room Air 10/11/23 02:09 10/11/23 02:03 10/11/23 01:56 10/11/23 01:56 10/11/23 01:54 10/11/23 01:53 10/11/23 01:43 Room Air Laboratory Results Laboratory Results - last 24 hr 10/11/23 10/11/23 10/11/23 01:55 02:09 03:45 WBC 9.80 RBC 4.53 Hgb 13.4 POC Hgb 12.9 Hct 40.4 POC Hct 38 MCV 89.2 MCH 29.6 MCHC 33.2 RDW Std Deviation 42.9 RDW Coeff of Kike 13.2 Plt Count 364 MPV 9.4 Immature Gran % (Auto) 0.2 Neut % (Auto) 59.5 Lymph % (Auto) 25.8 Stanly % (Auto) 9.8 Eos % (Auto) 3.9 Baso % (Auto) 0.8 Neut # (Auto) 5.83 Lymph # (Auto) 2.53 Stanly # (Auto) 0.96 H Eos # (Auto) 0.38 Baso # (Auto) 0.08 Immature Gran # (Auto) 0.02 PT 10.4 INR 1.0 APTT 25 PTT Ratio 0.9 POC Sodium 140 Sodium 138 POC Potassium 3.8 Potassium 3.9 POC Chloride 103 Chloride 105 Carbon Dioxide 25 POC Total CO2 22 L Anion Gap 8 POC Anion Gap 19.0 POC BUN 11 BUN 11 Creatinine 0.91 POC Creatinine 1.0 Est Cr Clr Drug Dosing Not Reportable Est GFR ( Amer) 77.3 Est GFR (Non-Af Amer) 66.7 BUN/Creatinine Ratio 12.1 Glucose 99 POC Glucose (other) 100 H Estimat Average Glucose 123 Hemoglobin A1c 5.9 H Calcium 9.0 POC Ioniz Calcium Carlos Eduardo 1.16 Magnesium 2.1 Total Bilirubin 0.3 AST 13 ALT 8 Alkaline Phosphatase 78 Troponin I High Sens 8.0 8.4 Total Protein 6.8 Albumin 4.2 Globulin 2.6 Albumin/Globulin Ratio 1.6 Triglycerides Cholesterol LDL Cholesterol, Calc VLDL Cholesterol, Calc HDL Cholesterol Cholesterol/HDL Ratio Lipase 15 TSH 3.179 10/11/23 05:58 WBC RBC Hgb POC Hgb Hct POC Hct MCV MCH MCHC RDW Std Deviation RDW Coeff of Kike Plt Count MPV Immature Gran % (Auto) Neut % (Auto) Lymph % (Auto) Stanly % (Auto) Eos % (Auto) Baso % (Auto) Neut # (Auto) Lymph # (Auto) Stanly # (Auto) Eos # (Auto) Baso # (Auto) Immature Gran # (Auto) PT INR APTT PTT Ratio POC Sodium Sodium POC Potassium Potassium POC Chloride Chloride Carbon Dioxide POC Total CO2 Anion Gap POC Anion Gap POC BUN BUN Creatinine POC Creatinine Est Cr Clr Drug Dosing Est GFR ( Amer) Est GFR (Non-Af Amer) BUN/Creatinine Ratio Glucose POC Glucose (other) Estimat Average Glucose Hemoglobin A1c Calcium POC Ioniz Calcium Carlos Eduardo Magnesium Total Bilirubin AST ALT Alkaline Phosphatase Troponin I High Sens 8.8 Total Protein Albumin Globulin Albumin/Globulin Ratio Triglycerides 66 Cholesterol 133 LDL Cholesterol, Calc 75 VLDL Cholesterol, Calc 13 HDL Cholesterol 45 Cholesterol/HDL Ratio 3.0 Lipase TSH Diagnostic Findings CXR 10/11/23: Median sternotomy wires are unchanged. Cardiomegaly is noted. The aortic arch is calcified. The lungs are clear. No evidence of pleural effusion or pneumothorax. IMPRESSION: No acute chest disease. Cardiomegaly is noted. CTA CHEST 10/11/23: Pulmonary arteries: Unremarkable. No acute pulmonary embolism. Aorta: Atherosclerotic changes of the aorta. No thoracic aortic aneurysm. Lungs: Unremarkable. No mass. No consolidation. Pleural space: Unremarkable. No significant effusion. No pneumothorax. Heart: Unremarkable. No cardiomegaly. No significant pericardial effusion. No evidence of RV dysfunction. Bones/joints: Degenerative changes of the spine. Sternotomy wires. No acute fracture. No dislocation. Soft tissues: Unremarkable. Lymph nodes: Unremarkable. No enlarged lymph nodes. IMPRESSION: No acute pulmonary embolism. Medications Administered Medication List Amlodipine Besylate (Amlodipine Besylate 5 Mg Tab) 5 mg PO [facility] Stop: 11/10/23 08:59 Last Admin: 10/11/23 08:18 Dose: 5 mg Documented By: PIPPA Aspirin (Aspirin 81 Mg Ectab) 81 mg PO BID [facility] Stop: 11/10/23 08:59 Last Admin: 10/11/23 08:19 Dose: 81 mg Documented By: PIPPA Fluoxetine HCl (Fluoxetine Hcl 20 Mg Cap) 40 mg PO [facility] Stop: 11/10/23 08:59 Last Admin: 10/11/23 08:18 Dose: 40 mg Documented By: PIPPA Fluticasone/Vilanterol (Fluticasone/Vilanterol 200/25mcg 14 Puffs/Inhaler) 1 puffs INH [facility] Stop: 11/10/23 08:59 Last Admin: 10/11/23 08:18 Dose: 1 puffs Documented By: PIPPA Heparin Sodium/Dextrose (Heparin Sodium/Dextrose) 25,000 units in 500 mls @ 23 mls/hr IV .[id number] [facility]; Protocol Stop: 11/10/23 03:29 Last Admin: 10/11/23 03:38 Dose: 1,150 units/hr, 23 mls/hr Documented By: NATHEN Co-signed By: NELSON Potassium Chloride/Sodium Chloride (Normal Saline W/20 Meq Kcl) 20 meq in 1,000 mls @ 80 mls/hr IV .[id number] [facility]; Protocol Stop: 10/11/23 16:29 Last Admin: 10/11/23 05:15 Dose: 80 mls/hr Documented By: KDL Metoprolol Tartrate (Metoprolol Tartrate 25 Mg Tab) 25 mg PO BID [facility] Stop: 11/10/23 08:59 Last Admin: 10/11/23 08:19 Dose: Not Given Documented By: PIPPA Pantoprazole Sodium (Pantoprazole 40 Mg Tab) 40 mg PO QAM [facility] Stop: 11/10/23 08:59 Last Admin: 10/11/23 08:19 Dose: 40 mg Documented By: PIPPA Discontinued Medications Aspirin (Aspirin Chew 324 Mg) 324 mg PO NOW STA Stop: 10/11/23 01:57 Last Admin: 10/11/23 02:08 Dose: 324 mg Documented By: LEYDA Fentanyl Citrate (Fentanyl Citrate Pf 100 Mcg/2 Ml Vial) 50 mcg IV Q15M PRN PRN Reason: Pain Stop: 10/25/23 03:20 Last Admin: 10/11/23 03:38 Dose: 50 mcg Documented By: NATHEN Heparin Sodium (Porcine) (Heparin Sod (Porcine) 1000 Unit/Ml) 5,000 units IV NOW ONE Stop: 10/11/23 03:31 Last Admin: 10/11/23 03:37 Dose: 5,000 units Documented By: NATHEN Co-signed By: NELSON [facility]amin[facility] ([facility]) 1,000 mg in 100 mls @ 400 mls/hr IV NOW STA Stop: 10/11/23 02:29 Last Infusion: 10/11/23 02:56 Dose: Infused Documented By: Admin: 10/11/23 02:25 Dose: 400 mls/hr Documented By: LEYDA Sodium Chloride (Nss) 500 mls @ 999 mls/hr IV .Q31M ONE Stop: 10/11/23 03:51 Last Infusion: 10/11/23 04:43 Dose: Infused Documented By: Admin: 10/11/23 03:39 Dose: 999 mls/hr Documented By: NATHEN Ioversol (Optiray 320 125ml) 125 ml IV ONCE ONE Stop: 10/11/23 02:39 Last Admin: 10/11/23 02:38 Dose: 118 ml Documented By: CARLOS Nitroglycerin (Nitroglycerin Sl 0.4 Mg/Tab Tab) 0.4 mg SL Q5M PRN PRN Reason: Chest Pain Stop: 11/10/23 01:55 Last Admin: 10/11/23 02:06 Dose: 0.4 mg Documented By: LEYDA PG Care Time/CCT Total # of Minutes Spent Total Time Spent with Patient: Total time spent is greater than 50% in coordination of care (as documented) at patient's floor/unit and/or counseling patient:44 C[place] [address] IN/OBS CONSULT LVL 4,60M Patient Type Established History Comprehensive Exam Comprehensive Medical Decision Making High Complexity Diagnoses Chest pressure R07.89 Coronary artery disease involving [place] coronary artery of [place] heart without angina pectoris I25.10 Associated angina: without angina Coronary Disease-Associated Artery/Lesion type: [place] artery [place] vs. transplanted heart: l[place] heart Primary hypertension I10 Hypertension type: primary hypertension Dyslipidemia E78.5 Cigarette nicotine dependence without complication F17.210 Nicotine product type: cigarettes Substance use status: uncomplicated Time Spent (min) 62 (2) CAD (coronary artery disease) Associated angina: without angina Coronary Disease-Associated Artery/Lesion type: [place] artery [place] vs. transplanted heart: [place] heart Qualified Code(s): I25.10 - Atherosclerotic heart disease of [place] coronary artery without angina pectoris (3) Hypertension Hypertension type: primary hypertension Qualified Code(s): I10 - Essential (primary) hypertension (5) Nicotine dependence Nicotine product type: cigarettes Substance use status: uncomplicated Qualified Code(s): F17.210 - Nicotine dependence, cigarettes, uncomplicated
--- NOTE | 2023-10-11 10:16 | XCELERA ---
[id number] [id number]
--- NOTE | 2023-10-11 10:22 | Medical Student Progress Note ---
Date of Service October 11, 2023 Assessment & Plan (1) Unstable angina: (2) CAD (coronary artery disease): Associated angina: without angina Coronary Disease-Associated Artery/Lesion type: [place] artery [place] vs. transplanted heart: [place] heart Qualified Code(s): I25.10 - Atherosclerotic heart disease of [place] coronary artery without angina pectoris (3) Hypertension: Hypertension type: primary hypertension Qualified Code(s): I10 - Essential (primary) hypertension (4) NSTEMI (non-ST elevated myocardial infarction): (5) Carotid arterial disease: Carotid artery disease type: stenosis Laterality: bilateral Qualified Code(s): I65.23 - Occlusion and stenosis of bilateral carotid arteries (6) Spinal stenosis of lumbar region with radiculopathy: (7) GERD without esophagitis: (8) Nicotine dependence: Nicotine product type: cigarettes (9) Anxiety: Plan: Unstable angina/CAD/hypertension/history of NSTEMI- - Patient given sublingual nitro, with subsequent drop in BP, aspirin 324 mg, tylenol 1 gIV, and 500 cc bolus NS by ED. - Started on heparin drip with bolus protocol. NSS+KCl 20 mEq at 80 mL/h x 1 L - The patient was admitted to telemetry for serial cardiac enzymes, serial EKG's, cardiac rhythm monitoring and a 2-D echocardiogram with Dopplers. - WBC 9.8, Hgb 13.4, Hct 40.4, PTT 10.4, PT 1.0, electrolytes WNL - Initial high sensitivity Troponin I level was 8.0 pg/mL, with subsequent values being 8.0, 8.4, and 8.8 pg/mL - not concerning for myocardial ischemia or infarction - EKG's have shown sinus rhythm with age indeterminate inferior infarct cited on or before 12/16/2013, progressive/persistent ST depression and T wave inversions in anteroseptal lateral leads, consider anterolateral ischemia. No significant change when compared to 10/16/21 tracing. Corroborated by Cardiology consult. - Patient did have episodes of bradycardia into the low to mid 40s, and then returns to baseline heart rate of 60 - Per cardiology consult,high sensitivity Troponin I levels are not consistent with myocardial ischemia or infarct and baseline EKG is abnormal but stable. BP and lipids at goal. Echo shows normal LV systolic function with normal wall motion. But, d/t symptoms and known CAD s/p CABG with upcoming surgery she will undergo Stress Echocardiogram (Quad screen&go). If normal, she can undergo shoulder surgery. - Cardiology agreed that she continue her current cardiac regimen otherwise including beta-sabrina, calcium channel sabrina, anti-platelet, and combination statin with Zetia. Dyslipidemia- - Patient will continue on Zetia/simvastatin - She reports a rash with severe itching to both atorvastatin and rosuvastatin - Fasting lipid panel WNL - HbA1c 5.9 Tobacco use disorder/COPD- - Cessation counseling - Continue Breo elliptica and albuterol sulfate HFA - Patient reports that she does not need a nicotine patch GERD- - Continue pantoprazole Anxiety- - Continue fluoxetine daily and lorazepam 3 times daily as needed Chronic pain syndrome/lumbar spinal stenosis with radiculopathy- - Acetaminophen 650 mg by mouth every 6 hours as needed for mild pain or fever - Continue tramadol 50 mg by mouth every 6 hours as needed for moderate pain (10) Dyslipidemia: Admission and Anticipated Discharge Date Admission Date: October 11, 2023 Subjective Savanah Shay is a 63-year-old female with a PMH including partial rotator cuff tear, right shoulder impingement, carotid arterial disease, BPPV, dyslipidemia, lumbar spinal stenosis, anxiety, GERD, nicotine dependence, CAD, NSTEMI history, hypertension, hyperlipidemia who presented early this morning for pchest pressure radiating to her left shoulder with associated SOB. On presentation, the pain was rated as a 7/10 in severity and radiated between her shoulder blades. At time of my evaluation, reports she is not having as much chest tightness/discomfort and rated her pain as a 2/10. The pain is no longer radiating anywhere. No longer having any SOB. Reports she had chills through the night but is no longer having chills. Endorses mild nausea, but thinks this might be due to taking morning meds on an empty stomach. Reports she has a cough at baseline 2/2 smoking. Denies diaphoresis, fevers, vomiting, recent changes in BM, acid reflux, increased swelling, numbness/tingling, calf pain, new arthralgias/myalgias, ligh theadedness, dizziness, congestion, or recent illnesses. Review of Systems Review of Systems: -- As per HPI. Physical Exam Physical Exam: The patient is awake, alert and oriented 3, well developed and well nourished, normocephalic and atraumatic, lying in bed and in no acute distress. HEENT--mucous membranes and oropharynx mildly dry. Neck--supple. Full ROM. Heart--normal S1 and S2. No murmurs, rubs or gallops. Lungs--clear bilaterally, no respiratory distress, no accessory muscle use. Abdomen--normal bowel sounds and soft. Nontender. Nondistended, no hernias or masses, no organomegaly. Extremities--No edema. DP and PT pulses 2+. Dermatologic--normal skin turgor, normal color, no rash. Neurologic-- Alert and oriented x 3. No focal deficits. MSK--normal range of motion. Psychiatric--normal affect. Results & Data Vital Signs (Past 12 Hours) Vital Signs Temp Pulse Pulse Resp BP BP Pulse Ox 10/11/23 08:14 36.4 C L 53 L 18 120/70 96 10/11/23 04:46 49 L 10/11/23 04:35 36.4 C L 53 L 16 150/86 H 97 10/11/23 04:18 60 20 149/84 H 95 10/11/23 02:45 60 16 134/76 97 10/11/23 02:10 117/62 10/11/23 02:10 117/62 10/11/23 02:10 62 16 117/62 95 10/11/23 02:09 58 L 17 95 10/11/23 02:03 66 22 10/11/23 01:56 180/87 H 10/11/23 01:56 180/87 H 10/11/23 01:54 68 19 10/11/23 01:53 68 10/11/23 01:43 36.5 C 55 L 18 180/91 H 98 O2 Del Method 10/11/23 08:14 Room Air 10/11/23 04:46 10/11/23 04:35 Room Air 10/11/23 04:18 Room Air 10/11/23 02:45 Room Air 10/11/23 02:10 10/11/23 02:10 10/11/23 02:10 Room Air 10/11/23 02:09 10/11/23 02:03 10/11/23 01:56 10/11/23 01:56 10/11/23 01:54 10/11/23 01:53 10/11/23 01:43 Room Air Laboratory Results 10/11/23 10/11/23 10/11/23 05:58 03:45 02:09 WBC RBC Hgb POC Hgb 12.9 Hct POC Hct 38 MCV MCH MCHC RDW Std Deviation RDW Coeff of Kike Plt Count MPV Immature Gran % (Auto) Neut % (Auto) Lymph % (Auto) [place] % (Auto) Eos % (Auto) Baso % (Auto) Neut # (Auto) Lymph # (Auto) [place] # (Auto) Eos # (Auto) Baso # (Auto) Immature Gran # (Auto) PT INR APTT PTT Ratio POC Sodium 140 Sodium POC Potassium 3.8 Potassium POC Chloride 103 Chloride Carbon Dioxide POC Total CO2 22 L Anion Gap POC Anion Gap 19.0 POC BUN 11 BUN Creatinine POC Creatinine 1.0 Est Cr Clr Drug Dosing Est GFR ( Amer) Est GFR (Non-Af Amer) BUN/Creatinine Ratio Glucose POC Glucose (other) 100 H Estimat Average Glucose Hemoglobin A1c Calcium POC Ioniz Calcium Carlos Eduardo 1.16 Magnesium Total Bilirubin AST ALT Alkaline Phosphatase Troponin I High Sens 8.8 8.4 Total Protein Albumin Globulin Albumin/Globulin Ratio Triglycerides 66 Cholesterol 133 LDL Cholesterol, Calc 75 VLDL Cholesterol, Calc 13 HDL Cholesterol 45 Cholesterol/HDL Ratio 3.0 Lipase TSH 10/11/23 01:55 WBC 9.80 RBC 4.53 Hgb 13.4 POC Hgb Hct 40.4 POC Hct MCV 89.2 MCH 29.6 MCHC 33.2 RDW Std Deviation 42.9 RDW Coeff of Kike 13.2 Plt Count 364 MPV 9.4 Immature Gran % (Auto) 0.2 Neut % (Auto) 59.5 Lymph % (Auto) 25.8 [place] % (Auto) 9.8 Eos % (Auto) 3.9 Baso % (Auto) 0.8 Neut # (Auto) 5.83 Lymph # (Auto) 2.53 [place] # (Auto) 0.96 H Eos # (Auto) 0.38 Baso # (Auto) 0.08 Immature Gran # (Auto) 0.02 PT 10.4 INR 1.0 APTT 25 PTT Ratio 0.9 POC Sodium Sodium 138 POC Potassium Potassium 3.9 POC Chloride Chloride 105 Carbon Dioxide 25 POC Total CO2 Anion Gap 8 POC Anion Gap POC BUN BUN 11 Creatinine 0.91 POC Creatinine Est Cr Clr Drug Dosing Not Reportable Est GFR ( Amer) 77.3 Est GFR (Non-Af Amer) 66.7 BUN/Creatinine Ratio 12.1 Glucose 99 POC Glucose (other) Estimat Average Glucose 123 Hemoglobin A1c 5.9 H Calcium 9.0 POC Ioniz Calcium Carlos Eduardo Magnesium 2.1 Total Bilirubin 0.3 AST 13 ALT 8 Alkaline Phosphatase 78 Troponin I High Sens 8.0 Total Protein 6.8 Albumin 4.2 Globulin 2.6 Albumin/Globulin Ratio 1.6 Triglycerides Cholesterol LDL Cholesterol, Calc VLDL Cholesterol, Calc HDL Cholesterol Cholesterol/HDL Ratio Lipase 15 TSH 3.179
--- NOTE | 2023-10-11 12:23 | XCELERA ---
[id number]
--- NOTE | 2023-10-11 13:14 | Electrocardiogram Report ---
Test Reason : Blood Pressure : */* mmHG Vent. Rate : 56 BPM Atrial Rate : 56 BPM P-R Int : 124 ms QRS Dur : 90 ms QT Int : 460 ms P-R-T Axes : -5 42 149 degrees QTcB Int : 443 ms Sinus bradycardia RSR' or QR pattern in V1 suggests right ventricular conduction delay Cannot rule out Inferior infarct (cited on or before 01-Feb-2014) Abnormal ECG When compared with ECG of 16-Oct-2021 02:49, No significant change was found Confirmed by Rudy Bledsoe ([id number]) on 10/11/2023 1:14:27 PM Referred By: REFERRED SELF Confirmed By: Rudy Bledsoe
--- NOTE | 2023-10-11 13:14 | Electrocardiogram Report ---
Test Reason : Blood Pressure : */* mmHG Vent. Rate : 54 BPM Atrial Rate : 54 BPM P-R Int : 140 ms QRS Dur : 84 ms QT Int : 490 ms P-R-T Axes : 8 31 138 degrees QTcB Int : 464 ms Sinus bradycardia Cannot rule out Inferior infarct (cited on or before 01-Feb-2014) Abnormal ECG When compared with ECG of 11-Oct-2023 01:51, (unconfirmed) No significant change was found Confirmed by Rudy Bledsoe ([id number]) on 10/11/2023 1:14:39 PM Referred By: REFERRED SELF Confirmed By: Rudy Bledsoe
--- NOTE | 2023-10-11 13:14 | Electrocardiogram Report ---
Test Reason : Blood Pressure : */* mmHG Vent. Rate : 64 BPM Atrial Rate : 64 BPM P-R Int : 164 ms QRS Dur : 90 ms QT Int : 464 ms P-R-T Axes : 62 44 158 degrees QTcB Int : 478 ms Normal sinus rhythm Cannot rule out Inferior infarct (cited on or before 01-Feb-2014) Abnormal ECG When compared with ECG of 11-Oct-2023 02:23, (unconfirmed) Inverted T waves have replaced nonspecific T wave abnormality in Inferior leads Confirmed by Rudy Bledsoe ([id number]) on 10/11/2023 1:14:45 PM Referred By: REFERRED SELF Confirmed By: Rudy Bledsoe
--- NOTE | 2023-10-11 13:16 | Electrocardiogram Report ---
Test Reason : Blood Pressure : */* mmHG Vent. Rate : 55 BPM Atrial Rate : 55 BPM P-R Int : 158 ms QRS Dur : 90 ms QT Int : 500 ms P-R-T Axes : 61 44 146 degrees QTcB Int : 478 ms Sinus bradycardia RSR' or QR pattern in V1 suggests right ventricular conduction delay Prolonged QT Abnormal ECG When compared with ECG of 11-Oct-2023 02:40, (unconfirmed) No significant change was found Confirmed by Rudy Bledsoe ([id number]) on 10/11/2023 1:15:45 PM Referred By: REFERRED SELF Confirmed By: Rudy Bledsoe
[2023-10-11 13:59] LABS: ANTI-Xa, UFH(UnfractionatedHep 0.41 IU/ml (0.3-0.7)
--- NOTE | 2023-10-11 14:48 | Discharge Summary ---
Date of Service October 11, 2023 Admission HPI Per Admitting Provider The patient is a 63-year-old female with a past medical history including partial rotator cuff tear, right shoulder impingement, carotid arterial disease, BPPV, dyslipidemia, lumbar spinal stenosis with maculopathy anxiety, greater than esophagitis, nicotine dependence, CAD, NSTEMI history and hypertension. She presents to the emergency department with substernal chest pain and shortness of breath that kept her from falling asleep this evening, after mowing her lawn earlier in the day today. With pain when she initially presented to the emergency department was at level 7, at the time my examination at the level 5. Admission Exam Per Admitting Provider The patient is awake, alert and oriented 3, well developed and well nourished, normocephalic and atraumatic, lying in bed and in no acute distress. HEENT--PERRL, EOMI, mucous membranes and oropharynx mildly dry. Neck--supple. No JVD. No bruits. Thyroid normal, trachea midline, no adenopathy. Heart--normal S1 and S2. No murmurs, rubs or gallops. Lungs--clear bilaterally, no respiratory distress, no accessory muscle use. Abdomen--normal bowel sounds and soft. Nontender. Nondistended, no hernias or masses, no organomegaly. Extremities--No edema. Dermatologic--normal skin turgor, normal color, no abnormal lymph nodes, no rash. Neurologic--cranial nerves II through XII grossly intact. Rheumatologic--normal range of motion. Psychiatric--normal affect. Principal Diagnosis Chest Pain Discharge Exam The patient is awake, alert and oriented 3, well developed and well nourished, normocephalic and atraumatic, lying in bed and in no acute distress. HEENT--mucous membranes and oropharynx mildly dry. Neck--supple. Full ROM. Heart--normal S1 and S2. No murmurs, rubs or gallops. Lungs--clear bilaterally, no respiratory distress, no accessory muscle use. Abdomen--normal bowel sounds and soft. Nontender. Nondistended, no hernias or masses, no organomegaly. Extremities--No edema. No calf tenderness to palpation. Dermatologic-- normal color, no rash. Neurologic-- Alert and oriented x 3. No focal deficits. MSK--normal range of motion. Psychiatric--normal affect. Discharge Data Allergies Allergy/AdvReac Type Severity Reaction Status Date / Time atorvastatin AdvReac Mild Rash Verified 10/11/23 02:20 rosuvastatin [From Crestor] AdvReac Mild Rash Verified 10/11/23 02:20 Consultations 10/11/23 02:56 ED Decision to Admit Stat 10/11/23 04:45 Consult Cardiology Routine Ordered Studies 10/11/23 01:56 CT angio chest PE protocol Stat Hospital Course (1) Unstable angina: (2) CAD (coronary artery disease): (3) Hypertension: (4) NSTEMI (non-ST elevated myocardial infarction): (5) Carotid arterial disease: (6) Spinal stenosis of lumbar region with radiculopathy: (7) GERD without esophagitis: (8) Nicotine dependence: (9) Anxiety: (10) Dyslipidemia: Plan Chest Pain- - Patient given sublingual nitro, aspirin 324 mg, tylenol 1 gIV, and 500 cc bolus NS by ED. - Started on heparin drip with bolus protocol. NSS+KCl 20 mEq at 80 mL/h x 1 L - The patient was admitted to telemetry for serial cardiac enzymes, serial EKG's, cardiac rhythm monitoring and a 2-D echocardiogram with Dopplers. - WBC 9.8, Hgb 13.4, Hct 40.4, PTT 10.4, PT 1.0, electrolytes WNL - Initial high sensitivity Troponin I level was 8.0 pg/mL, with subsequent deborah ues being 8.0, 8.4, and 8.8 pg/mL - not concerning for myocardial ischemia or infarction - EKG's have shown sinus rhythm with age indeterminate inferior infarct cited on or before 12/16/2013, S-T and T wave abnormality, consider anterolateral ischemia. No significant change when compared to 10/16/21 tracing. - Patient did have episodes of bradycardia into the low to mid 40s, and then returns to baseline heart rate of 60 - Per cardiology consult, high sensitivity Troponin I levels are not consistent with myocardial ischemia or infarct and baseline EKG is abnormal but stable. BP and lipids at goal. Echo shows normal LV systolic function with normal wall motion. But, d/t symptoms and known CAD s/p CABG with upcoming surgery she underwent Stress Echocardiogram (Quad screen&go). - Stress Echocardiogram returned normal. Patient is stable for discharge. - Cardiology agreed that she continue her current cardiac regimen otherwise including beta-sabrina, calcium channel sabrina, anti-platelet, and combination statin with Zetia. - Given patient's persistent symptoms over a >12 hour time period, stable EKG's to prior, and no change in troponin, her chest pain is likely not CAD in origin. It is likely due to patient's known GERD vs. MSK/rib pain vs. anxiety. Dyslipidemia- - Patient will continue on Zetia/simvastatin - She reports a rash with severe itching to both atorvastatin and rosuvastatin - Fasting lipid panel WNL - HbA1c 5.9 Tobacco use disorder/COPD- - Cessation counseling - Continue Breo elliptica and albuterol sulfate HFA - Patient reports that she does not need a nicotine patch GERD- - Continue pantoprazole Anxiety- - Continue fluoxetine daily and lorazepam 3 times daily as needed Chronic pain syndrome/lumbar spinal stenosis with radiculopathy- - Acetaminophen 650 mg by mouth every 6 hours as needed for mild pain or fever - Continue tramadol 50 mg by mouth every 6 hours as needed for moderate pain Total Time Total Time Spent Total Time Spent (In Minutes): See attending documentation Discharge Plan Discharge Items Patient Disposition: Home - Self-Care Reason For Visit: chest pain Discharge Diagnosis: Resolved chest pain - likely with GERD vs. anxiety vs. MSK as etiology Condition on Discharge: Good Activity: Resume your previous activity Non-emergency contact: Primary Care Provider and Aerospace Mechanic Call non-emergency contact if: your symptoms worsen Follow-up/Referrals: Yoli Beaver MD [Primary Care Provider] - 10/14/23 10:30 am (PCP followup: 10/13 @10:30am Zayda BLACKMAN) Diet: Regular Addtl Attending Provider Instructions: You were admitted for chest pain. We performed serial high sensitivity troponins which were all normal. We also performed serial EKG's , which were unchanged from your prior EKG's. Your BP and lipids were at goal. Your echocardiogram was normal. A stress echocardiogram was performed as well, which was normal. Hence, your cardiac workup was entirely normal. Hence, your chest pain is likely due to GERD or anxiety, not related to your heart. You may go home and resume normal activity. You should continue taking all of your home medications. Pending Studies at Discharge: No Stand-Alone Forms: My [facility] Medications and DC Order Prescriptions: Continued tramadol 50 mg tablet 50 mg PO Q6H PRN (Reason: pain) Qty: 60 3RF lorazepam 0.5 mg tablet 0.5 mg PO TID PRN (Reason: anxiety) Qty: 30 3RF metoprolol tartrate 25 mg tablet 25 mg PO BID Qty: 180 3RF albuterol sulfate 90 mcg/actuation HFA aerosol inhaler 2 puff inhalation Q6H PRN (Reason: shortness of breath or wheezing) Qty: 8.5 2RF clobetasol 0.05 % cream 1 applic TOP BID PRN (Reason: Other) Rx Instructions: Apply to areas of the trunk and extremities twice daily x 2 weeks as directed. aspirin 81 mg Tablet,Delayed Release (Dr/Ec) 81 mg PO BID fluoxetine 40 mg capsule 40 mg PO QAM amlodipine 5 mg tablet 5 mg PO QAM pantoprazole 40 mg tablet,delayed release (DR/EC) 40 mg PO QAM ezetimibe-simvastatin 10-80 mg tablet 1 tab PO QPM fluticasone furoate-vilanterol [Breo Ellipta] 200-25 mcg/dose blister with device 1 inh inhalation QAM Rx Instructions: INHALE 1 PUFF BY MOUTH DAILY Discharge Orders: Discharge Order (Routine); Ordered 10/11/23 Ordered By: Negro Polk Admission Data Admit Date/Time: 10/11/23 03:47 Attending Provider: Orestes Groves Admit Provider: Rick Fan Primary Care Provider: Yoli Beaver Other Providers: Rick Fan; Matt Collins Other Interventions: Discharge Summary Assessment (RN) Last Done: 10/11/23 16:39 Supervising Physician Co-Signing Physician Notes I personally examined the patient and verified all marsh points of history and exam, discussed case, and agree with decision making with Dr Polk and Manolo Chakraborty ing MS4 feeling better and would like to go home. Wonders if it was anxiety related. Is not sure her Prozac is helping. Vitals noted, in general she is awake and alert pleasant no distress. HEENT normocephalic atraumatic mucous membranes moist. Breathing unlabored no accessory muscle use good effort. Skin shows no rashes no pallor or icterus. Neuro without focal deficits. Chest painnegative cardiac enzymes, EKG changes chronic, negative stress testlikely anxiety mediated. Anxietyoutpatient follow-up with PCP. Discussed that her skin rash and excoriations could every bit as much be due to the anxiety as her medication, and that medication management is often best done with the physician following up on the changes. Also discussed that thought process management/cognitive work, as well as self stress management skills tend to be far more important in the management of anxiety than any medication for most patients. safe/stable for home, otherwise as above Resident Activity Tracking Resident Involvement: Resident Care Provided Care Provided: Adult Hospital Medicine
[2023-10-11] MEDS ORDERED: FUROSEMIDE 40 MG/4 ML VIAL IV ONE (15:26)
[2023-10-11 16:23] VITALS: PULSE 55; RESP 18; TEMP 97.7; O2SAT 95
[2023-10-11 16:40] VITALS: BP 120/70
--- NOTE | 2023-10-11 18:10 | Billing Data ---
Date of Service October 11, 2023 Coding Level of Care Code 21559 IN/OBS DISCH 30 MIN/LESS
--- NOTE | 2023-10-11 18:11 | Billing Data ---
Date of Service October 11, 2023 Coding Level of Care Code 30727 IN/OBS DISCH 30 MIN/LESS
[2023-10-11] MEDS ORDERED: EZETIMIBE/SIMVASTATIN 10/80MG TAB PO SCH (21:00)
== END 2023-10-11 17:09 | disposition home or self-care (01) | DRG 303 ==
LOC: ED 01:41 → 4W 03:47 → SUATTDRO 03:47 → 4W 04:18

== ENCOUNTER 2024-08-16 11:57 | Observation (INO) ==
--- NOTE | 2024-08-16 12:44 | Emergency Department Note ---
ED DC CONDITION Conditon at Discharge Condition at Discharge: Good Impression & Plan Atrial fibrillation with RVR, Chest pain, GARCIA (dyspnea on exertion), Encounter for smoking cessation counseling ED Provider Note NAME: JAMIE CHO AGE: 64 SEX: F : 1960 ARRIVES VIA: Ambulance INFORMANT: Patient, ED PROVIDER(S): Luis M Francisco MD CHIEF COMPLAINT: Shortness of breath, irregular heartbeat MEDICAL DECISION MAKING: Patient presents with above with associated chest pain. IV was established and blood work was obtained along with an EKG. EKG did show diffuse T wave versions anteriorly and laterally PVCs noted. I did review some of the rhythm strips and the patient does have 2 that did show a likely A-fib with RVR. Patient's blood work shows a normal white count virtually normal hemoglobin 11.9 with normal platelet count. Kidney function unremarkable mild hypocalcemia at 8.3. Initial troponin is negative. Given the patient's symptoms do believe she would benefit from admission. The patient did state that she had improvement after Xopenex treatment. I did speak to the on-call hospital service MODESTO London PA-C and Dr. Álvarez and the patient was admitted to the medicine service. Of note the patient's repeat troponin was slightly elevated at 24.9. I counseled patient on smoking cessation for 3 minutes. Treatment options discussed and resources provided. Patient was receptive. Discussion w/ other healthcare providers: None Prior /Outside records reviewed: None Differential diagnosis: Cardiac ischemia, aortic dissection, pulmonary embolism, pneumothorax, pneumonia, pericarditis, myocarditis, GERD, cholecystitis, pancreatitis, musculoskeletal, as well as other pathologies were considered. Diagnostics, as interpreted by me: ECG: Sinus with PVCs, rate 95, normal intervals, normal axis T wave versions anteriorly and laterally with PVCs noted. No obvious STEMI. Q wave noted in lead III. No significant change from comparison October 11, 2023. Cardiac monitoring: An order was placed for continuous cardiac monitoring. The monitor shows a rate of 85 with sinus rhythm. Patient was placed on pulse oximetry Medical decision rules: [id number] score Imaging studies: I informally interpreted the patient's Chest x-ray does not shows pneumonia or pneumothorax, sternotomy no wires noted, with formal report to follow. HPI: Patient presents due to concern for shortness of breath and irregular heartbeat and chest pain. The patient states that she has had the shortness of breath and feeling as though she has had an irregular heartbeat for the last 48 hours. Unclear whether it was 2 days ago or yesterday alone. The patient does complain of GARCIA but not so much at rest. The patient has had some heaviness in the chest with some radiation to the bilateral shoulders. Patient does report that she smokes daily and does have a history of quadruple bypass and does follow with Dale Powers PA-C. Patient denies any medication changes but had been on a course of prednisone and azithromycin about and finished this 5-day course about a week ago on Wednesday for bronchitis. Patient denies any chest pain with cough. No leg swelling or calf pain. No history of DVT or PE. The patient does take baby aspirin twice daily but no other blood thinners. PAST MEDICAL HISTORY: See Below PAST SURGICAL HISTORY: See Below SOCIAL HISTORY: See Below HOME MEDICATIONS: See Below ALLERGIES: See Below VITALS: See Below PHYSICAL EXAMINATION: GENERAL: NAD, non-toxic. Appears older than stated age. EYE EXAM: Normal conjunctiva. PERRL, no anisocoria and EOM's grossly intact w/o pain. OROPHARYNX: Moist mucus membranes, g edentulous. NECK: Trachea midline, no stridor. Supple, no nuchal rigidity, no adenopathy, non-tender. No signs of meningismus. FROM of the neck with good chin to chest and neck extension. LUNGS: Diminished breath sounds at the bases, scant wheeze in the left upper lung field. Normal chest wall mechanics. HEART: NSR, no MRG. ABDOMEN: Abdomen soft, non-tender, no masses, no rebound or guarding. BACK: No CVA TTP. SKIN: No rashes and no bruising. UPPER EXTREMITIES: Upper extremities are grossly normal. LOWER EXTREMITIES: Grossly normal, no edema. Negative Homans' sign bilaterally. NEURO EXAM: Awake and alert, follows commands, no obvious facial asymmetry, normal speech, moves all 4 extremities. Past Med/Surg History Problem List New onset atrial fibrillation Encounter for smoking cessation counseling (Acute) GARCIA (dyspnea on exertion) (Acute) Chest pain (Acute) Atrial fibrillation with RVR (Acute) Skin lesion of left arm Positive colorectal cancer screening using Cologuard test Impaired fasting blood sugar (Chronic) COPD (chronic obstructive pulmonary disease) History of arthroscopic surgery of shoulder Spinal stenosis of lumbar region with radiculopathy Carotid arterial disease Carotid duplex 06/2022: B/L ICA stenosis < 50% Carpal tunnel syndrome, right Dyslipidemia (Chronic) Anxiety (Chronic) Diverticulosis (Chronic) GERD without esophagitis (Chronic) Nicotine dependence (Chronic) CAD (coronary artery disease) (Chronic) h/o 4 v. CABG 2013 Hypertension (Chronic) Medical History Spinal stenosis of lumbar region with radiculopathy CAD (coronary artery disease) 2014- CABG x 4 Hypertension Diverticulosis COPD (chronic obstructive pulmonary disease) no pulm Dyslipidemia GERD (gastroesophageal reflux disease) Anxiety BPPV (benign paroxysmal positional vertigo) Hx of colonic polyp Hx of non-ST elevation myocardial infarction (NSTEMI) (2013) 2013-- CABG x 4 Surgical History History of repair of rotator cuff right Hx of colonoscopy with polypectomy History of bilateral carpal tunnel release R/L Hx of cardiac cath (2013) [facility] [place]- CABG x4 --[facility] S/P CABG (coronary artery bypass graft) (2013) CABG x4- [facility]- follows with dale powers History of section (1985) x1 History of cataract surgery bilat History of foot surgery Left foot, bunionectomy, surgery on 2nd toe Family History Mother Myocardial infarction Father Myocardial infarction Denies family history of Ovarian cancer Prostate cancer Breast cancer Colorectal cancer Social History Smoking Status: Heavy tobacco smoker Tobacco Type: Cigarettes Age Started Using Tobacco: 29; packs per day: 0.5; Cigarettes Per Day: 20 to 30; Second Hand Exposure: No; Do You Dip or Chew Tobacco: No; Hx Alcohol Use: No Hx Substance Use: No Preferred Language: Thai Communication Ability: Effective Visual Impairment: No Limitations Hearing Ability: Normal Food Tester Required: No Beliefs That Will Affect Care: None marital status: Current Living Situation: Spouse Current Living Situation Comment: Lives at house with current occupational status: unemployed Feels Safe at Home: Yes Safety Concerns: Feels Safe At This Time Childhood Exposure to Second-Hand Smoke: No Diet: regular caffeine: Yes (coffee daily) Dental Care, Regularly: No Physical Activity Frequency: Daily Physical Activity Frequency Comment: walks daily as able with back issues Seatbelt Use: always Sunscreen Use: No Gender Identity: Female Assistive Devices: None Allergies Allergies Allergy/AdvReac Type Severity Reaction Status Date / Time atorvastatin AdvReac Mild Rash Verified 07/17/24 14:32 rosuvastatin [From Crestor] AdvReac Mild Rash Verified 07/17/24 14:32 Home Meds Home Medications Medication Instructions Recorded Confirmed aspirin 81 mg tablet,delayed 81 mg PO BID 10/11/23 08/16/24 release ezetimibe 10 mg-simvastatin 80 mg 1 tab PO HS 03/20/24 08/16/24 tablet sertraline 100 mg tablet 100 mg PO QAM 03/20/24 08/16/24 sertraline 25 mg tablet (Zoloft) 25 mg PO QAM 03/20/24 08/16/24 meclizine 25 mg tablet 25 mg PO BID PRN Vertigo 05/25/24 08/16/24 Previous Rx's Medication Instructions Recorded amlodipine 5 mg tablet 5 mg PO QAM #90 tabs 02/07/24 hydroxyzine HCl 25 mg tablet 25 mg PO QID PRN itching and 02/07/24 anxiety #30 tabs metoprolol tartrate 25 mg tablet 25 mg PO BID #180 tabs 02/07/24 pantoprazole 40 mg tablet,delayed 40 mg PO QAM #90 tabs 02/07/24 release albuterol sulfate 90 mcg/actuation 2 puff inhalation Q6H PRN 02/10/24 aerosol inhaler shortness of breath or wheezing 90 days #3 Cans fluticasone furoate 200 1 inh inhalation QAM #180 ea 02/10/24 mcg-vilanterol 25 mcg/dose inhalation powder (Breo Ellipta) lorazepam 0.5 mg tablet 0.5 mg PO TID PRN anxiety #30 tabs 04/04/24 tramadol 50 mg tablet 50 mg PO Q6H PRN pain #60 tabs 04/04/24 Results & Data (ED) Vital Signs Vital Signs - 24 hr 08/16/24 12:00 08/16/24 12:00 08/16/24 12:00 Temperature 36.6 C Temperature Source Oral Pulse Rate 89 Pulse Rate [Apical] Respiratory Rate 16 Respiratory Effort / Characteristics Non-Labored Spontaneous Non-Labored Spontaneous Respiratory Depth Normal Blood Pressure 104/64 Blood Pressure [Right Arm] Blood Pressure Mean 77 Blood Pressure Mean [Right Arm] Blood Pressure Position Lying Blood Pressure Position [Right Arm] Pulse Oximetry 96 96 Oxygen Delivery Method Room Air Room Air Room Air Sepsis Recent Fever Within 48 Hours No Sepsis New/Unexplained Change in Mental Status No Sepsis Action Taken by Nursing No Action Required 08/16/24 12:00 08/16/24 12:49 08/16/24 13:02 Temperature Temperature Source Pulse Rate 84 86 Pulse Rate [Apical] 89 Respiratory Rate 16 16 Respiratory Effort / Characteristics Non-Labored Spontaneous Respiratory Depth Blood Pressure Blood Pressure [Right Arm] 104/64 Blood Pressure Mean Blood Pressure Mean [Right Arm] 77 Blood Pressure Position Blood Pressure Position [Right Arm] Lying Pulse Oximetry 96 94 Oxygen Delivery Method Room Air Room Air Sepsis Recent Fever Within 48 Hours Sepsis New/Unexplained Change in Mental Status Sepsis Action Taken by Nursing 08/16/24 14:00 Temperature Temperature Source Pulse Rate Pulse Rate [Apical] 68 Respiratory Rate 16 Respiratory Effort / Characteristics Non-Labored Spontaneous Respiratory Depth Blood Pressure Blood Pressure [Right Arm] 102/60 Blood Pressure Mean Blood Pressure Mean [Right Arm] 74 Blood Pressure Position Blood Pressure Position [Right Arm] Pulse Oximetry 95 Oxygen Delivery Method Room Air Sepsis Recent Fever Within 48 Hours Sepsis New/Unexplained Change in Mental Status Sepsis Action Taken by Assisted Medications Current Medication List: was personally reviewed by me Laboratory Data Attestation: I reviewed the patient's lab results. 08/16/24 12:14 08/16/24 12:14 Lab Results 08/16/24 08/16/24 Range/Units 12:14 15:29 WBC 9.78 (4.8-10.8) K/ul RBC 4.16 L (4.20-5.40) M/uL Hgb 11.9 L (12.0-16.0) g/dl Hct 36.9 L (37.0-47.0) % MCV 88.7 (80.0-100.0) fL MCH 28.6 (25.0-34.0) pg MCHC 32.2 (32.0-36.0) g/dL RDW Std Deviation 46.4 H (36.4-46.3) fL RDW Coeff of Kike 14.3 (11.5-14.5) % Plt Count 338 (130-400) K/uL MPV 9.9 (9.4-12.4) fL Immature Gran % (Auto) 0.4 % Neut % (Auto) 70.8 % Lymph % (Auto) 14.7 % Gillespie % (Auto) 11.1 % Eos % (Auto) 2.2 % Baso % (Auto) 0.8 % Neut # (Auto) 6.91 H (1.40-6.50) K/uL Lymph # (Auto) 1.44 (1.20-3.40) K/uL Gillespie # (Auto) 1.09 H (0.11-0.59) K/uL Eos # (Auto) 0.22 (0.00-0.50) K/uL Baso # (Auto) 0.08 (0.00-0.20) K/uL Immature Gran # (Auto) 0.04 (0.01-0.20) K/uL PT 10.4 (9.0-12.0) Seconds INR 1.0 (0.9-1.1) APTT 26 (21-31) Seconds PTT Ratio 1.0 Sodium 140 (136-145) mmol/L Potassium 3.8 (3.5-5.1) mmol/L Chloride 110 H (98-107) mmol/L Carbon Dioxide 22 (21-32) mmol/L Anion Gap 8 (3-11) BUN 9 (6-23) mg/dl Creatinine 0.66 (0.6-1.2) mg/dl Est Cr Clr Drug Dosing 91.4 ml/min eGFR 97.29 BUN/Creatinine Ratio 13.6 (10-20) Glucose 107 H (70-99(Fasting)) mg/dl Calcium 8.3 L (8.6-10.3) mg/dl Phosphorus 3.1 (2.5-4.9) mg/dl Magnesium 2.0 (1.7-2.4) mg/dl Total Bilirubin 0.4 (0.2-1.0) mg/dl AST 10 L (13-39) U/L ALT 7 (7-52) U/L Alkaline Phosphatase 79 (34-104) U/L Troponin I High Sens 12.5 24.9 H D (0-14) pg/ml Total Protein 6.2 (6.0-8.3) gm/dl Albumin 3.6 (3.4-5.0) gm/dl Globulin 2.6 (2.5-4.0) gm/dl Albumin/Globulin Ratio 1.4 (0.9-2) Lipase 12 (11-82) U/L TSH 1.191 (0.300-4.500) uIu/ml Administered Medications Discontinued Medications Apixaban (Apixaban 5 Mg Tablet) 5 mg PO NOW STA Stop: 08/16/24 16:07 Last Admin: 08/16/24 16:27 Dose: 5 mg Documented By: CARLOS Aspirin (Aspirin Chew 324 Mg) 243 mg PO NOW STA Stop: 08/16/24 13:25 Last Admin: 08/16/24 13:33 Dose: 243 mg Documented By: CARLOS Levalbuterol HCl (Levalbuterol 1.25 Mg/3 Ml Neb) 1.25 mg NEB NOW STA Stop: 08/16/24 13:25 Last Admin: 08/16/24 13:35 Dose: 1.25 mg Documented By: CARLOS Imaging Data Radiologist's Impression: Chest X-Ray 08/16/24 12:48 XR chest 1V portable CLINICAL HISTORY: Chest pain, nonspecific COMPARISON STUDY: 10/11/2023 FINDINGS: Stable CABG. Stable mild cardiomegaly without pulmonary vascular congestion. No effusion, consolidation, or pneumothorax. IMPRESSION: No acute findings. ACT 112: Negative or not required by law. Electronically signed by: Adan Velásquez M.D. 08/16/2024 1:12 PM Discharge Plan Visit Data Chief Complaint: Cardiac Assessment ED Provider: Luis M Francisco Discharge Problem: Atrial fibrillation with RVR, Chest pain, GARCIA (dyspnea on exertion), Encounter for smoking cessation counseling Patient Disposition: Admitted As Inpatient Condition: Good Discharge Instructions Interventions: ED Discharge Assessment Last Done: 08/16/24 16:54 Discharge Problem: Chest pain Qualifiers: Chest pain type: unspecified Qualified Code(s): R07.9 - Chest pain, unspecified
[2024-08-16 13:08] LABS: Basophils # (auto) 0.08 K/uL (0.00-0.20); Basophils % (auto) 0.8 %; Eosinophils # (auto) 0.22 K/uL (0.00-0.50); Eosinophils % (auto) 2.2 %; Hematocrit (blood only) 36.9 % (37.0-47.0); Hemoglobin 11.9 g/dl (12.0-16.0); Immature Granulocytes # (auto) 0.04 K/uL (0.01-0.20); Immature Granulocytes % (auto) 0.4 %; Lymphocytes # (auto) 1.44 K/uL (1.20-3.40); Lymphocytes % (auto) 14.7 %; Mean Corpuscular Hemoglobin 28.6 pg (25.0-34.0); Mean Corpuscular Hgb Conc 32.2 g/dL (32.0-36.0); Mean Corpuscular Volume 88.7 fL (80.0-100.0); Mean Platelet Volume 9.9 fL (9.4-12.4); Monocytes # (auto) 1.09 K/uL (0.11-0.59); Monocytes % (auto) 11.1 %; Neutrophils # (auto) 6.91 K/uL (1.40-6.50); Neutrophils % (auto) 70.8 %; Platelet Count 338 K/uL (130-400); RDW Coefficient of Variation 14.3 % (11.5-14.5); RDW Standard Deviation 46.4 fL (36.4-46.3); Red Blood Count 4.16 M/uL (4.20-5.40); White Blood Count 9.78 K/ul (4.8-10.8)
--- NOTE | 2024-08-16 13:14 | XRay Report ---
XR chest 1V portable CLINICAL HISTORY: Chest pain, nonspecific COMPARISON STUDY: 10/11/2023 FINDINGS: Stable CABG. Stable mild cardiomegaly without pulmonary vascular congestion. No effusion, c onsolidation, or pneumothorax. IMPRESSION: No acute findings. ACT 112: Negative or not required by law. Electronically signed by: Adan Velásquez M.D. 08/16/2024 1:12 PM
[2024-08-16 13:16] LABS: Albumin Globulin Ratio 1.4 (0.9-2); Albumin Level 3.6 gm/dl (3.4-5.0); BUN Creatinine Ratio 13.6 (10-20); Bilirubin,Total 0.4 mg/dl (0.2-1.0); Calcium 8.3 mg/dl (8.6-10.3); Creatinine Clr Calc Pharmacy 91.4 ml/min; Globulin 2.6 gm/dl (2.5-4.0); Phosphorus 3.1 mg/dl (2.5-4.9); Potassium 3.8 mmol/L (3.5-5.1); Total Protein 6.2 gm/dl (6.0-8.3)
[2024-08-16 13:21] LABS: Troponin I High Sensitivity 12.5 pg/ml (0-14)
[2024-08-16 13:33] LABS: Partial Thromboplastin Time 26 Seconds (21-31); Prothrombin Time 10.4 Seconds (9.0-12.0)
[2024-08-16] MEDS: ASPIRIN CHEW 324 MG PO STA (13:33)
[2024-08-16] MEDS: LEVALBUTEROL 1.25 MG/3 ML NEB NEB STA (13:35)
--- NOTE | 2024-08-16 14:17 | History & Physical Report ---
Date of Service August 16, 2024 Assessment & Plan (1) New onset atrial fibrillation: (2) Atrial fibrillation with RVR: (3) CAD (coronary artery disease): Plan This patient is a 64-year-old female who presents on 08/16 for intermittent chest palpitations, chest tightness, and GARCIA. #New onset A fib w/ RVR | Paroxysmal Troponin 12->24 on arrival; trend q6h to peak EKG with diffuse T wave inversions in the lateral leads; similar to EKG on 10/11/2023 Ischemic cardiomyopathy as potential etiology for A-fib; cardiology consult appreciated Per telemetry strips provided by EMS on arrival, 2 episodes of atrial fibrillation with RVR around 120 to 130 bpm Aspirin 243 mg p.o. x 1 given in the ED Patient denies prior history of A-fib TSH WNL Echocardiogram ordered, pending Not previously on blood thinners; no prior history of bleeding disorders or GI bleeds [id number] score: 4 Initiate Eliquis 5 mg p.o. BID Chest pain free at time of admission; NSR at time of admission Continuous telemetry monitoring #Recent history of bronchitis Completed course of prednisone and azithromycin While this may be contributing to GARCIA, patient reports intermittent chest palpitations 1-2 times per month for an extended period of time; thus, do not believe recent infection is the primary cause of new onset A-fib #CAD | HTN | HLD | h/o NSTEMI CABG x 4 vessels on 12/18/2013 at [facility] Last echocardiogram on 10/11/2023 revealed LVEF at 66 5%; no regional wall motion abnormalities Normal stress echo on 10/11/2023; however, only 81% predicted maximum heart rate reached No heart stents Continue ezetimibe-simvastatin Continue metoprolol 25 mg p.o. BID Hold amlodipine, as patient might require up titration of metoprolol Will defer increasing metoprolol on admission as patient has soft BP at 102/60 with HR 68bpm If she continues to go in and out of atrial fibrillation, may consider antiarrhythmic Decrease aspirin from 81 mg BID -> 81 mg daily, as we will be starting patient on Eliquis # Current everyday tobacco cigarette smoker 12 PPD; continue to encourage cessation Declines nicotine patch #Anxiety/depression Continue sertraline Continue lorazepam, hydroxyzine PRN #GERD Continue PPI Disposition: Obs - Admit to [facility] telemetry VTE PPx: Eliquis History of Present Illness Chief Complaint: Cardiac assessment, chest tightness, chest palpitations Primary Care Provider: Yoli Beaver MD Mrs. Shay is a 64-year-old female with PMH of CAD, NSTEMI s/p CABG x 4 vessels (on 12/18/2013), HTN, GERD, anxiety, dyslipidemia, and COPD. She presented via EMS on 08/16 for new onset GARCIA and tachycardia. She also endorses intermittent chest tightness and palpitations. Recently diagnosed with bronchitis on 08/05, and completed course of azithromycin and prednisone taper as prescribed. Patient reports she felt good after completing these medications, then approximately 2 days ago (on Monday 08/14), she began the GARCIA "returned with a vengeance". She also felt like she was having chest palpitations and an irregular heartbeat. These chest palpitations are not new for her, but they last for several minutes at a time. They occur once or twice per month. No prior history of atrial fibrillation to her knowledge. She does not have a watch or wait to monitor her heart rate at home. She currently takes baby aspirin, but no other blood thinners. No prior history of blood thinner use. No history of bleeding disorders or GI bleeds. She denies SOB at rest or when she is flat on her back. Patient took her regular morning medicine today; only recent change in medications were prednisone and azithromycin for her recent infection. No PMH of DVT/PE. She is a current everyday tobacco cigarette smoker; 12 PPD; no interest in quitting at this time. She denies any recent alcohol use. Patient's vital stable at time of admission. ED course: Levalbuterol 1.25 mg neb Aspirin 243 mg p.o. ROS: Patient endorses DAVIS, intermittent chest palpitations, mild pleuritic CP, dry cough, and new onset GARCIA. Patient denies fever, chills, night sweats, dizziness/lightheadedness, chest pain, SOB at rest, erythema/swelling in the legs, abdominal pain, N/V/D, blood in the urine or stool, melena, changes in urinary bowel habits, or numbness or tingling in the arms or legs. Allergies Allergy/AdvReac Type Severity Reaction Status Date / Time atorvastatin AdvReac Mild Rash Verified 07/17/24 14:32 rosuvastatin [From Crestor] AdvReac Mild Rash Verified 07/17/24 14:32 Home Medications Medication Instructions Recorded Confirmed Type aspirin 81 mg tablet,delayed 81 mg PO BID 10/11/23 08/16/24 History release amlodipine 5 mg tablet 5 mg PO QAM #90 tabs 02/07/24 08/16/24 Rx hydroxyzine HCl 25 mg tablet 25 mg PO QID PRN itching and 02/07/24 08/16/24 Rx anxiety #30 tabs metoprolol tartrate 25 mg tablet 25 mg PO BID #180 tabs 02/07/24 08/16/24 Rx pantoprazole 40 mg tablet,delayed 40 mg PO QAM #90 tabs 02/07/24 08/16/24 Rx release albuterol sulfate 90 mcg/actuation 2 puff inhalation Q6H PRN 02/10/24 08/16/24 Rx aerosol inhaler shortness of breath or wheezing 90 days #3 Cans fluticasone furoate 200 1 inh inhalation QAM #180 ea 02/10/24 08/16/24 Rx mcg-vilanterol 25 mcg/dose inhalation powder (Breo Ellipta) ezetimibe 10 mg-simvastatin 80 mg 1 tab PO HS 03/20/24 08/16/24 History tablet sertraline 100 mg tablet 100 mg PO QAM 03/20/24 08/16/24 History sertraline 25 mg tablet (Zoloft) 25 mg PO QAM 03/20/24 08/16/24 History lorazepam 0.5 mg tablet 0.5 mg PO TID PRN anxiety #30 tabs 04/04/24 08/16/24 Rx tramadol 50 mg tablet 50 mg PO Q6H PRN pain #60 tabs 04/04/24 08/16/24 Rx meclizine 25 mg tablet 25 mg PO BID PRN Vertigo 05/25/24 08/16/24 History Past Med/Surg History Problem List New onset atrial fibrillation Encounter for smoking cessation counseling (Acute) GARCIA (dyspnea on exertion) (Acute) Chest pain (Acute) Atrial fibrillation with RVR (Acute) Skin lesion of left arm Positive colorectal cancer screening using Cologuard test Impaired fasting blood sugar (Chronic) COPD (chronic obstructive pulmonary disease) History of arthroscopic surgery of shoulder Spinal stenosis of lumbar region with radiculopathy Carotid arterial disease Carotid duplex 06/2022: B/L ICA stenosis < 50% Carpal tunnel syndrome, right Dyslipidemia (Chronic) Anxiety (Chronic) Diverticulosis (Chronic) GERD without esophagitis (Chronic) Nicotine dependence (Chronic) CAD (coronary artery disease) (Chronic) h/o 4 v. CABG 2013 Hypertension (Chronic) Medical History Spinal stenosis of lumbar region with radiculopathy CAD (coronary artery disease) 2014- CABG x 4 Hypertension Diverticulosis COPD (chronic obstructive pulmonary disease) no pulm Dyslipidemia GERD (gastroesophageal reflux disease) Anxiety BPPV (benign paroxysmal positional vertigo) Hx of colonic polyp Hx of non-ST elevation myocardial infarction (NSTEMI) (2013) 2013-- CABG x 4 Surgical History History of repair of rotator cuff right Hx of colonoscopy with polypectomy History of bilateral carpal tunnel release R/L Hx of cardiac cath (2013) [facility]>OK- CABG x4 --yvonne peña S/P CABG (coronary artery bypass graft) (2013) CABG x4- s casey- follows with eve tidwell History of section (1985) x1 History of cataract surgery bilat History of foot surgery Left foot, bunionectomy, surgery on 2nd toe Family History Mother Myocardial infarction Father Myocardial infarction Denies family history of Ovarian cancer Prostate cancer Breast cancer Colorectal cancer Social History Smoking Status: Heavy tobacco smoker Tobacco Type: Cigarettes Age Started Using Tobacco: 29; packs per day: 0.5; Cigarettes Per Day: 20 to 30; Second Hand Exposure: No; Do You Dip or Chew Tobacco: No; Hx Alcohol Use: No Hx Substance Use: No Preferred Language: Wolof Communication Ability: Effective Visual Impairment: No Limitations Hearing Ability: Normal Motion Picture Film Examiner Required: No Beliefs That Will Affect Care: None marital status: Current Living Situation: Spouse Current Living Situation Comment: Lives at house with current occupational status: unemployed Feels Safe at Home: Yes Safety Concerns: Feels Safe At This Time Childhood Exposure to Second-Hand Smoke: No Diet: regular caffeine: Yes (coffee daily) Dental Care, Regularly: No Physical Activity Frequency: Daily Physical Activity Frequency Comment: walks daily as able with back issues Seatbelt Use: always Sunscreen Use: No Gender Identity: Female Assistive Devices: None Review of Systems 2 Review of Systems: See HPI above Physical Exam 2 Physical Exam: General: no acute distress; family at bedside; non-toxic appearing; cooperative; SpO2 94% on RA HEENT: normocephalic, atraumatic; no scleral icterus; PERRLA; vision and hearing intact Neck: supple; no lymphadenopathy; trachea midline Skin: warm, dry without signs of tenting; no cyanosis; no rashes, bruising, lesions, or erythema noted CV: chest wall NTP; RRR; S1/S2 normal; no murmurs/rubs/gallops; pulses intact and symmetric at radial, DP, and PT Lungs: no acute respiratory distress; symmetrical chest wall expansion; clear breath sounds across all lung jerez w/o adventitious sounds; no wheezing ABD: Soft, NTP; BS present; no rebound/guarding; no distention MSK: no tics or fasciculations; no edema noted in the LEs b/l, nonerythematous Neuro: A&Ox3; normal mood and affect; fluent speech; no focal deficits; sensation intact symmetric in the lower extremities bilaterally Results & Data Results & Data Vital Signs (Past 12 Hours) Vital Signs Temp Pulse Pulse Resp BP BP Pulse Ox 08/16/24 13:02 86 08/16/24 12:49 84 16 94 08/16/24 12:00 89 16 104/64 96 08/16/24 12:00 96 08/16/24 12:00 36.6 C 89 16 104/64 96 08/16/24 12:00 O2 Del Method 08/16/24 13:02 08/16/24 12:49 Room Air 08/16/24 12:00 Room Air 08/16/24 12:00 Room Air 08/16/24 12:00 Room Air 08/16/24 12:00 Room Air Laboratory Results Abnormal lab results 08/16/24 Range/Units 12:14 RBC 4.16 L (4.20-5.40) M/uL Hgb 11.9 L (12.0-16.0) g/dl Hct 36.9 L (37.0-47.0) % RDW Std Deviation 46.4 H (36.4-46.3) fL Neut # (Auto) 6.91 H (1.40-6.50) K/uL [place] # (Auto) 1.09 H (0.11-0.59) K/uL Chloride 110 H (98-107) mmol/L Glucose 107 H (70-99(Fasting)) mg/dl Calcium 8.3 L (8.6-10.3) mg/dl AST 10 L (13-39) U/L Diagnostic Findings Chest X-Ray 08/16/24 12:48 XR chest 1V portable CLINICAL HISTORY: Chest pain, nonspecific COMPARISON STUDY: 10/11/2023 FINDINGS: Stable CABG. Stable mild cardiomegaly without pulmonary vascular congestion. No effusion, consolidation, or pneumothorax. IMPRESSION: No acute findings. ACT 112: Negative or not required by law. Electronically signed by: Adan Velásquez M.D. 08/16/2024 1:12 PM ECG Additional Comments: ECG on arrival revealed sinus rhythm with frequent PVCs at 95 bpm; QTc 454 However, telemetry strips in the ED did reveal A-fib with RVR at 129 bpm (see below) Code Status & VTE Plan Code Status Full code VTE Prophylaxis Plan VTE Prophylaxis will be ordered: Yes Supervising Physician Co-Signing Physician Notes Attending Attestation & Admit Note: Pt seen/examined, chart reviewed, admit care plan d/w YEHUDA [place]. I agree w/ the marsh components of his admission documentation with the following addition - --admit EKG - NSR, PVC, diffuse T wave inversions anterior leads as well as T wave inversion/flattening in all limb leads - T wave changes chronic 64yo female with CAD/NSTEMI s/p CABG x 4 vessels (12/18/2013 at [facility]), HTN, GERD, anxiety, dyslipidemia, ongoing tobacco dependence, and COPD. She presented via EMS with chest tightness, dyspnea, tachycardia, and palpitations. While en route in the ambulance an EKG was obtained by EMS personnel which appeared to show rapid a.fib. She then converted back to NSR. After arrival to [facility] she had another brief episode of PAF by report. Patient states that in the ambulance her chest was tight and she could feel her heart racing. She has had heart racing/palpitations in the past, usually on weekly basis. Recently dx with bronchitis earlier this month; treated with steroids/abx. Had improved with her pulmonary symptoms, then her chest symptoms returned a couple of days ago. PMH/PSH/allergies/meds/sochx/famhx - reviewed VSS, afebrile gen - laying comfortably in bed, NAD neck - no JVD heart - RRR, s1 s2 lungs - minimal end-exp scattered wheezes; no rales; no increased work of breathing abd - soft NT ND BS+ ext - no edema ankles/feet; 2+ pulses b/l feet labs reviewed EKG reviewed as above CXR negative A/P: 1. recent COPD exacerbation/acute bronchitis - improved 2. new-onset rapid a.fib - multiple runs that are self-converting back to NSR 3. chest tightness - 2nd to rapid a.fib? 2nd to ischemia? 2nd to recent bronchitis? concerned either due to ischemia vs the afib 4. known CAD s/p 4V CABG @ [facility] [place] about 10 years ago 5. ongoing tobacco dependence -telemetry -would hold amlodipine in the event we need additional room for beta sabrina titration if a.fib recurs or becomes sustained -if PAF occurs frequently, and if unable to rate control, consider anti- arrhythmic - but defer that decision to cardiology -agree with Eliquis -serial troponins -echo -chest tightness - in light of known CAD, and given her chest tightness was at peak when she was in rapid a.fib in the ambulance -- ischemia? -will consult [facility] -consider repeat stress test? cath? -had stress test 09/2023 - but did not hit target HR during the study despite it being negative -lower asa 81mg daily since Eliquis is being added -tobacco cessation -nebs/bronchodilators for COPD; defer on additional steroids/abx as the recent COPD flare seems improved/resolved Cory Álvarez MD PG Care Time/CCT Total # of Minutes Spent Total Time Spent with Patient: Total time spent is greater than 50% in coordination of care (as documented) at patient's floor/unit and/or counseling patient: Coding [place] [address] INT INP/OBS CARE MIN Patient Type Established Medical Decision Making High Complexity Diagnoses New onset atrial fibrillation I48.91 Atrial fibrillation with RVR I48.91 Coronary artery disease involving [place] coronary artery of [place] heart without angina pectoris I25.10 Associated angina: without angina Coronary Disease-Associated Artery/Lesion type: [place] artery [place] vs. transplanted heart: [place] heart (3) CAD (coronary artery disease) Associated angina: without angina Coronary Disease-Associated Artery/Lesion type: [place] artery [place] vs. transplanted heart: [place] heart Qualified Code(s): I25.10 - Atherosclerotic heart disease of [place] coronary artery without angina pectoris
[2024-08-16 16:07] LABS: Troponin I High Sensitivity 24.9 pg/ml (0-14)
[2024-08-16 16:17] LABS: Thyroid Stimulating Hormone 1.191 uIu/ml (0.300-4.500)
[2024-08-16] MEDS: APIXABAN 5 MG TABLET PO STA (16:27)
[2024-08-16] MEDS ORDERED: LORazepam 0.5 MG TAB PO PRN (18:24)
[2024-08-16] MEDS ORDERED: ALBUTEROL HFA 8 GM INHALER INH PRN (18:24)
[2024-08-16] MEDS ORDERED: hydrOXYzine HCl 25 MG TAB PO PRN (18:24)
[2024-08-16] MEDS ORDERED: MECLIZINE HCL 25 MG TAB PO PRN (18:24)
[2024-08-16] MEDS ORDERED: traMADol HCL 50 MG TABLET PO PRN (18:24)
[2024-08-16] MEDS ORDERED: ACETAMINOPHEN 325 MG TAB PO PRN (18:24)
[2024-08-16 19:59] VITALS: RESP 18
[2024-08-16] MEDS: EZETIMIBE 10 MG TAB PO SCH (20:10)
[2024-08-16] MEDS: METOPROLOL TARTRATE 25 MG TAB PO SCH (20:10)
[2024-08-16] MEDS: SIMVASTATIN 80 MG TAB PO SCH (20:10)
[2024-08-16] MEDS ORDERED: EZETIMIBE/SIMVASTATIN 10/80MG TAB PO SCH (21:00)
[2024-08-16] MEDS ORDERED: APIXABAN 5 MG TABLET PO SCH (21:00)
--- NOTE | 2024-08-17 05:18 | Electrocardiogram Report ---
Test Reason : Blood Pressure : */* mmHG Vent. Rate : 95 BPM Atrial Rate : 95 BPM P-R Int : 156 ms QRS Dur : 80 ms QT Int : 362 ms P-R-T Axes : 45 29 128 degrees QTcB Int : 454 ms Sinus rhythm with frequent Premature ventricular complexes Cannot rule out Inferior infarct , age undetermined Abnormal ECG When compared with ECG of 11-Oct-2023 05:33, Premature ventricular complexes are now Present Vent. rate has increased by 40 bpm Confirmed by Sd Dao ([id number]) on 08/17/2024 5:18:10 AM Referred By: REFERRED SELF Confirmed By: Sd Dao
[2024-08-17 07:13] LABS: Hematocrit (blood only) 35.6 % (37.0-47.0); Hemoglobin 11.5 g/dl (12.0-16.0); Mean Corpuscular Hemoglobin 28.7 pg (25.0-34.0); Mean Corpuscular Hgb Conc 32.3 g/dL (32.0-36.0); Mean Corpuscular Volume 88.8 fL (80.0-100.0); Mean Platelet Volume 9.6 fL (9.4-12.4); Platelet Count 328 K/uL (130-400); RDW Coefficient of Variation 14.1 % (11.5-14.5); RDW Standard Deviation 45.9 fL (36.4-46.3); Red Blood Count 4.01 M/uL (4.20-5.40); White Blood Count 7.79 K/ul (4.8-10.8)
[2024-08-17 07:32] LABS: BUN Creatinine Ratio 14.9 (10-20); Calcium 8.4 mg/dl (8.6-10.3); Creatinine Clr Calc Pharmacy 87.6 ml/min; Potassium 3.9 mmol/L (3.5-5.1)
[2024-08-17 07:39] LABS: Troponin I High Sensitivity 47.5 pg/ml (0-14)
[2024-08-17] MEDS: ASPIRIN 81 MG ECTAB PO SCH (08:25)
[2024-08-17] MEDS: SERTRALINE HCL 50 MG TABLET PO SCH (08:25)
[2024-08-17] MEDS: PANTOprazole 40 MG TAB PO SCH (08:25)
[2024-08-17] MEDS: APIXABAN 5 MG TABLET PO SCH (08:25)
[2024-08-17] MEDS: FLUTICASONE/VILANTEROL 200/25MCG 14 PUFFS/INHALER INH SCH (08:26)
[2024-08-17] MEDS: SERTRALINE HCL 100 MG TABLET PO SCH (08:26)
--- NOTE | 2024-08-17 09:57 | XCELERA ---
[id number]
[2024-08-17 12:05] VITALS: BP 150/85; TEMP 98.1; O2SAT 95
--- NOTE | 2024-08-17 12:15 | Cardiology Consultation ---
Date of Consultation August 17, 2024 Assessment & Plan (1) Palpitations: (2) Tachyarrhythmia: (3) Chest pain: (4) CAD (coronary artery disease): (5) S/P CABG (coronary artery bypass graft): (6) Hypertension: (7) Dyslipidemia: (8) Elevated troponin: Plan ASSESSMENT/PLAN: 1. Palpitations: Reportedly atrial fibrillation however rhythm strips were not available for review at the time of today's consultation. There apparently rhythm strips from EMS which should hopefully be available in EHR by the time she follows up in the outpatient setting. If atrial fibrillation, it would be reasonable to increase metoprolol to 50 mg twice daily. Recommend stroke risk reduction with anticoagulation therapy if no contraindication. Would consider outpatient monitor to evaluate A-fib burden. Based on her symptoms, her palpitation/tachycardia burden is small. We discussed A-fib in detail, but once again A-fib cannot be confirmed with this consultation. We discussed treatment strategies, including rate control, rhythm control, ablation. If truly A-fib, with little burden, rate control strategy is reasonable. 2. Elevated troponin: Likely due to demand ischemia in the setting of tachycardia. Further ischemic evaluation not necessary at this time. 3. Chest pain/shortness of breath: Occurred in the setting of tachycardia. Plan as above. If has symptoms otherwise, could consider noninvasive ischemic evaluation in the outpatient setting. 4. Hypertension: Blood pressure mostly normotensive here. Can continue outpatient regimen with adjustment of beta-sabrina as above. 5. CAD s/p CABG x 4: Had chest pain and shortness of breath but in the setting of tachycardia, presumably A-fib with RVR. Otherwise, denies anginal symptoms. Continue beta-sabrina. Continue statin therapy (intolerant to high intensity statin therapy per records). 6. Dyslipidemia: LDL above goal when last evaluated. Can make further adjustments in the outpatient setting as appropriate. Has not tolerated atorvastatin and rosuvastatin. Could consider PCSK9 inhibitor in place of Zetia. 7. Disposition: Follow-up closely with her primary cardiology provider, Mr. Gio [facility]. Can be discharged from a cardiac perspective. Patient care communicated with primary hospitalist, Dr. Clark and Ayde Negrete PA-C. Today's visit was 55 minutes in duration, which includes [id number] time, counseling patient, coordinating care, reviewing records, completing documentation. Thank you for allowing me to participate in the care of your patient. Please call for any other questions or concerns. Sincerely, Tuan Dao M.D. History of Present Illness Reason for Consultation: New onset A-fib Requesting Physician: Josue London Attending Physician: Jonah Clark MD History of Present Illness Ms. Shay is a very pleasant 64-year-old female with a history significant for CAD s/p CABG x 4 (12/18/13 [facility] to LAD; SVG Cx; SVG PDA; SVG PL, hypertension, dyslipidemia, and COPD. She follows in the cardiology office with Dale Powers PA-C. She was admitted on 08/16/2024 after presenting with palpitations, chest pain, and shortness of breath. For the past 2 weeks, she has had shortness of breath with fevers. She was diagnosed with bronchitis and was prescribed steroids and Z-Luc. Her symptoms have improved but not yet returned to baseline. On 08/15/2024, she developed palpitations which intermittently occurred, lasting for 5 to 10 minutes. She notes that her heart was racing during these episodes. On the day of presentation, she had palpitations with acute shortness of breath and substernal chest heaviness. She noted that her heart rate increased to 140 bpm prehospital. She states that she had an ECG done with EMS and that her symptoms quickly and spontaneously resolved and her heart rate returned to normal. All of her symptoms resolved when her heart rate returned to normal. ER note mentions rhythm strips reviewed by Dr. Francisco which demonstrated likely A-fib, but unfortunately, these rhythm strips are not available for review at the time of this consult.ECG here demonstrated sinus rhythm. She has not had any return of the symptoms. She admits that she has had similar palpitations in the past, estimating twice in the past 6 months. Symptoms have been short-lived, lasting only a few minutes. In the past, angina consisted of bilateral arm pain and she has not had such symptoms since 2013 CABG. She denies syncope, near syncope, edema, melena, hematochezia, hematuria, or other bleeding. Review of systems: As above. Family history: Parents and 2 sisters have had cardiac "issues." Social history: Smokes 1 pack/day since age of 29. No alcohol or drug abuse. Lives at home with her . Has 2 children. She was unaccompanied. Allergies Allergy/AdvReac Type Severity Reaction Status Date / Time atorvastatin AdvReac Mild Rash Verified 07/17/24 14:32 rosuvastatin [From Crestor] AdvReac Mild Rash Verified 07/17/24 14:32 Home Medications Medication Instructions Recorded Confirmed Type amlodipine 5 mg tablet 5 mg PO QAM #90 tabs 02/07/24 08/16/24 Rx hydroxyzine HCl 25 mg tablet 25 mg PO QID PRN itching and 02/07/24 08/16/24 Rx anxiety #30 tabs pantoprazole 40 mg tablet,delayed 40 mg PO QAM #90 tabs 02/07/24 08/16/24 Rx release albuterol sulfate 90 mcg/actuation 2 puff inhalation Q6H PRN 02/10/24 08/16/24 Rx aerosol inhaler shortness of breath or wheezing 90 days #3 Cans fluticasone furoate 200 1 inh inhalation QAM #180 ea 02/10/24 08/16/24 Rx mcg-vilanterol 25 mcg/dose inhalation powder (Breo Ellipta) ezetimibe 10 mg-simvastatin 80 mg 1 tab PO HS 03/20/24 08/16/24 History tablet sertraline 100 mg tablet 100 mg PO QAM 03/20/24 08/16/24 History sertraline 25 mg tablet (Zoloft) 25 mg PO QAM 03/20/24 08/16/24 History lorazepam 0.5 mg tablet 0.5 mg PO TID PRN anxiety #30 tabs 04/04/24 08/16/24 Rx tramadol 50 mg tablet 50 mg PO Q6H PRN pain #60 tabs 04/04/24 08/16/24 Rx meclizine 25 mg tablet 25 mg PO BID PRN Vertigo 05/25/24 08/16/24 History apixaban 5 mg tablet (Eliquis) 5 mg PO BID #60 tabs 08/17/24 Rx aspirin 81 mg tablet,delayed 81 mg PO DAILY #0 tabs 08/17/24 08/16/24 Rx release metoprolol tartrate 25 mg tablet 50 mg (2 x 25 mg) PO BID #120 tabs 08/17/24 Rx Patient History Medical History Spinal stenosis of lumbar region with radiculopathy CAD (coronary artery disease) 2014- CABG x 4 Hypertension Diverticulosis COPD (chronic obstructive pulmonary disease) no pulm Dyslipidemia GERD (gastroesophageal reflux disease) Anxiety BPPV (benign paroxysmal positional vertigo) Hx of colonic polyp Hx of non-ST elevation myocardial infarction (NSTEMI) (2013) 2014-- CABG x 4 Surgical History History of repair of rotator cuff right Hx of colonoscopy with polypectomy History of bilateral carpal tunnel release R/L Hx of cardiac cath (2013) [facility] S/P CABG (coronary artery bypass graft) (2013) CABG x4- [facility] follows with dale velasquezr History of section (1985) x1 History of cataract surgery bilat History of foot surgery Left foot, bunionectomy, surgery on 2nd toe Family History Mother Myocardial infarction Father Myocardial infarction Denies family history of Ovarian cancer Prostate cancer Breast cancer Colorectal cancer Social History Smoking Status: Heavy tobacco smoker Tobacco Type: Cigarettes Age Started Using Tobacco: 29; packs per day: 0.5; Cigarettes Per Day: 20 to 30; Second Hand Exposure: No; Do You Dip or Chew Tobacco: No; Hx Alcohol Use: No Hx Substance Use: No Preferred Language: Cymraes Communication Ability: Effective Visual Impairment: No Limitations Hearing Ability: Normal Supply Chain Manager Required: No Beliefs That Will Affect Care: None marital status: Current Living Situation: Spouse Current Living Situation Comment: Lives at house with current occupational status: unemployed Feels Safe at Home: Yes Childhood Exposure to Second-Hand Smoke: No Diet: regular caffeine: Yes (coffee daily) Dental Care, Regularly: No Physical Activity Frequency: Daily Physical Activity Frequency Comment: walks daily as able with back issues Seatbelt Use: always Sunscreen Use: No Gender Identity: Female Assistive Devices: None Physical Exam Physical Exam: Gen.: No acute distress. Alert and oriented. HEENT: Anicteric sclera. Neck: No JVD. No bruits. Normal carotid upstrokes bilaterally. Cardiac: Regular. Normal S1-S2. No murmurs, rubs, or gallops. Pulmonary: Clear to auscultation bilaterally without wheezes, rales, or rhonchi. Abdomen: Soft, nontender, nondistended, with normoactive bowel sounds. No bruits noted. Extremities: 2+ radial pulses bilaterally. 2+ posterior tibialis pulses bilaterally. No edema or cyanosis. Psychiatric: Affect appears appropriate. Results & Data Vital Signs (Past 12 Hours) Vital Signs Temp Pulse Pulse Resp BP BP Pulse Ox 08/17/24 12:04 36.7 C 56 L 18 150/85 H 95 08/17/24 08:21 36.6 C 57 L 18 136/78 94 08/17/24 05:45 77 08/17/24 03:04 36.8 C 65 18 132/80 94 08/17/24 02:05 69 O2 Del Method 08/17/24 12:04 Room Air 08/17/24 08:21 Room Air 08/17/24 05:45 08/17/24 03:04 Room Air 08/17/24 02:05 Laboratory Results Laboratory Results - last 24 hr 08/16/24 08/16/24 08/16/24 12:14 15:29 22:27 WBC 9.78 RBC 4.16 L Hgb 11.9 L Hct 36.9 L MCV 88.7 MCH 28.6 MCHC 32.2 RDW Std Deviation 46.4 H RDW Coeff of Kike 14.3 Plt Count 338 MPV 9.9 Immature Gran % (Auto) 0.4 Neut % (Auto) 70.8 Lymph % (Auto) 14.7 Valley % (Auto) 11.1 Eos % (Auto) 2.2 Baso % (Auto) 0.8 Neut # (Auto) 6.91 H Lymph # (Auto) 1.44 Valley # (Auto) 1.09 H Eos # (Auto) 0.22 Baso # (Auto) 0.08 Immature Gran # (Auto) 0.04 PT 10.4 INR 1.0 APTT 26 PTT Ratio 1.0 Sodium 140 Potassium 3.8 Chloride 110 H Carbon Dioxide 22 Anion Gap 8 BUN 9 Creatinine 0.66 Est Cr Clr Drug Dosing 91.4 eGFR 97.29 BUN/Creatinine Ratio 13.6 Glucose 107 H Calcium 8.3 L Phosphorus 3.1 Magnesium 2.0 Total Bilirubin 0.4 AST 10 L ALT 7 Alkaline Phosphatase 79 Troponin I High Sens 12.5 24.9 H D 32.5 H Total Protein 6.2 Albumin 3.6 Globulin 2.6 Albumin/Globulin Ratio 1.4 Lipase 12 TSH 1.191 08/17/24 06:37 WBC 7.79 RBC 4.01 L Hgb 11.5 L Hct 35.6 L MCV 88.8 MCH 28.7 MCHC 32.3 RDW Std Deviation 45.9 RDW Coeff of Kike 14.1 Plt Count 328 MPV 9.6 Immature Gran % (Auto) Neut % (Auto) Lymph % (Auto) Valley % (Auto) Eos % (Auto) Baso % (Auto) Neut # (Auto) Lymph # (Auto) Valley # (Auto) Eos # (Auto) Baso # (Auto) Immature Gran # (Auto) PT INR APTT PTT Ratio Sodium 139 Potassium 3.9 Chloride 109 H Carbon Dioxide 23 Anion Gap 7 BUN 10 Creatinine 0.67 Est Cr Clr Drug Dosing 87.6 eGFR 96.94 BUN/Creatinine Ratio 14.9 Glucose 96 Calcium 8.4 L Phosphorus Magnesium Total Bilirubin AST ALT Alkaline Phosphatase Troponin I High Sens 47.5 H D Total Protein Albumin Globulin Albumin/Globulin Ratio Lipase TSH Diagnostic Findings Chart reviewed. Labs reviewed and notable for elevated high-sensitivity troponin peaking at 47; normal renal function, normal potassium, normal TSH, nonelevated transaminase levels, normal magnesium, mild anemia. ECG personally reviewed: ECG 08/16/2024 at 1207: Sinus rhythm with PVCs 95 bpm. Anterior T wave inversion (chronic). Telemetry personally reviewed: Sinus rhythm. Echo 08/17/2024: Normal LV size, wall motion, systolic function. EF 60-65%. Mild to moderate LVH. Mild left atrial dilation. Mild MR. Normal RVSP. Sinus rhythm. Medications Administered Current Inpatient Medications Acetaminophen (Acetaminophen 325 Mg Tab) 650 mg PO Q4H PRN PRN Reason: Pain or Fever Stop: 09/15/24 18:23 Albuterol (Albuterol Hfa 8 Gm Inhaler) 2 puffs INH Q6H PRN PRN Reason: shortness of breath or wheezin Stop: 09/15/24 18:23 Apixaban (Apixaban 5 Mg Tablet) 5 mg PO BID [facility] Stop: 09/16/24 08:59 Last Admin: 08/17/24 08:25 Dose: 5 mg Aspirin (Aspirin 81 Mg Ectab) [facility] [place] Stop: 09/16/24 08:59 Last Admin: 08/17/24 08:25 Dose: 81 mg Ezetimibe (Ezetimibe 10 Mg Tab) 10 mg PO [facility] Stop: 09/15/24 20:59 Last Admin: 08/16/24 20:10 Dose: 10 mg Fluticasone/Vilanterol (Fluticasone/Vilanterol 200/25mcg 14 Puffs/Inhaler) 1 puffs INH QAM [facility] Stop: 09/16/24 08:59 Last Admin: 08/17/24 08:26 Dose: 1 puffs Hydroxyzine HCl (Hydroxyzine Hcl 25 Mg Tab) 25 mg PO QID PRN PRN Reason: itching and anxiety Stop: 09/15/24 18:23 Lorazepam (Lorazepam 0.5 Mg Tab) 0.5 mg PO TID PRN PRN Reason: anxiety Stop: 09/15/24 18:23 Meclizine HCl (Meclizine Hcl 25 Mg Tab) 25 mg PO BID PRN PRN Reason: Vertigo Stop: 09/15/24 18:23 Metoprolol Tartrate (Metoprolol Tartrate 25 Mg Tab) 25 mg PO BID [facility] Stop: 09/15/24 20:59 Last Admin: 08/17/24 08:25 Dose: 25 mg Pantoprazole Sodium (Pantoprazole 40 Mg Tab) [facility] [place] Stop: 09/16/24 08:59 Last Admin: 08/17/24 08:25 Dose: 40 mg Sertraline HCl (Sertraline Hcl 100 Mg Tablet) [facility] [place] Stop: 09/16/24 08:59 Last Admin: 08/17/24 08:26 Dose: 100 mg Sertraline HCl (Sertraline Hcl 50 Mg Tablet) 25 [facility] [place] Stop: 09/16/24 08:59 Last Admin: 08/17/24 08:25 Dose: 25 mg Simvastatin (Simvastatin 80 Mg Tab) 80 mg PO [facility]; Protocol Stop: 09/15/24 20:59 Last Admin: 08/16/24 20:10 Dose: 80 mg Tramadol HCl (Tramadol Hcl 50 Mg Tablet) 50 mg PO Q6H PRN PRN Reason: pain Stop: 09/15/24 18:23 PG Care Time/CCT Total # of Minutes Spent Total Time Spent: 55 Total Time Spent with Patient: Total time spent is greater than 50% in coordination of care (as documented) at patient's floor/unit and/or counseling patient: Coding Level of Care Code 66444 INT INP/OBS CARE 3/75MIN Diagnoses Palpitations R00.2 Tachyarrhythmia R00.0 Chest pain R07.9 Chest pain type: unspecified Coronary artery disease involving [place] coronary artery of [place] heart without angina pectoris I25.10 Coronary Disease-Associated Artery/Lesion type: [place] artery [place] vs. transplanted heart: [place] heart Associated angina: without angina S/P CABG (coronary artery bypass graft) Z95.1 Primary hypertension I10 Hypertension type: primary hypertension Dyslipidemia E78.5 Elevated troponin R79.89 Time Spent (min) 55 (3) Chest pain Chest pain type: unspecified Qualified Code(s): R07.9 - Chest pain, unspecified (4) CAD (coronary artery disease) Coronary Disease-Associated Artery/Lesion type: [place] artery [place] vs. transplanted heart: [place] heart Associated angina: without angina Qualified Code(s): I25.10 - Atherosclerotic heart disease of [place] coronary artery without angina pectoris (6) Hypertension Hypertension type: primary hypertension Qualified Code(s): I10 - Essential (primary) hypertension
[2024-08-17 13:40] VITALS: PULSE 68
--- NOTE | 2024-08-17 13:52 | Discharge Summary ---
Discharge Summary Date of Service August 17, 2024 Principal Dx & Hospital Course #1 = Principal Diagnosis (1) New onset atrial fibrillation: (2) Paroxysmal atrial fibrillation with RVR: (3) CAD (coronary artery disease): Plan 64-year-old female with PMH of CAD, NSTEMI s/p CABG x 4 vessels (on 12/18/2013), HTN, GERD, anxiety, dyslipidemia, and COPD. She presented on 08/16 for intermittent chest palpitations, chest tightness, and GARCIA. Per telemetry strips provided by EMS on arrival, 2 episodes of atrial fibrillation with RVR around 120 to 130 bpm. She self-converted back to NSR and remained in NSR with rates in 60s70s throughout her hospitalization. No electrolyte abnormalities, TSH WNL. #New onset A fib w/ RVR | Paroxysmal - Troponin peaked at 47.5 then down trendedlikely secondary to demand ischemia - EKG with diffuse T wave inversions in anterior leads as well as T wave inversions/flattening in all limb leads. T wave changes are chronic and similar to prior EKGs - Echocardiogram noted normal left ventricular size and systolic function. EF 60-65%. No definitive regional wall motion abnormalities. Mild to moderate left ventricular hypertrophy. Mild left atrial dilation. Mild MR. Estimated RV systolic pressure. No significant change from prior study in September 2023. - Cardiology consulted and discussed case/recommendations. Follow-up outpatient for 30-day event monitor - [id number] score: 4 - Started Eliquis 5 mg p.o. twice daily - Increased metoprolol to tartrate to 50 mg twice daily (previously on 25 mg twice daily) #Recent history of bronchitis - Completed course of prednisone and azithromycin - While this may be contributing to GARCIA, patient reports intermittent chest palpitations 1-2 times per month for an extended period of time; thus, do not believe recent infection is the primary cause of new onset A-fib #CAD | HTN | HLD | h/o NSTEMI - CABG x 4 vessels on 12/18/2013 at [facility] - Normal stress echo on 10/11/2023; however, only 81% predicted maximum heart rate reached - No heart stents - Continue ezetimibe-simvastatin, amlodipine. Metoprolol increased as noted above - Decreased aspirin from 81 mg BID -> 81 mg daily, as patient has been started on Eliquis # Current everyday tobacco cigarette smoker - 12 PPD; continue to encourage cessation - Declines nicotine patch #Anxiety/depression - Continue sertraline, lorazepam, hydroxyzine PRN #GERD - Continue PPI Dispo: Discharged home 08/17 VTE PPx: Angelaquyoly Notes For Next Care Provider Recommend 30-day event monitor outpatient Monitor heart rate with increased metoprolol dosing Medication Changes From Visit Started Eliquis 5 mg twice daily Increased metoprolol to 50 mg twice daily Decreased aspirin 81 mg to once daily Admission HPI Per Admitting Provider Mrs. Shay is a 64-year-old female with PMH of CAD, NSTEMI s/p CABG x 4 vessels (on 12/18/2013), HTN, GERD, anxiety, dyslipidemia, and COPD. She presented via EMS on 08/16 for new onset GARCIA and tachycardia. She also endorses intermittent chest tightness and palpitations. Recently diagnosed with bronchitis on 08/05, and completed course of azithromycin and prednisone taper as prescribed. Patient reports she felt good after completing these medications, then approximately 2 days ago (on Monday 08/14), she began the GARCIA "returned with a vengeance". She also felt like she was having chest palpitations and an irregular heartbeat. These chest palpitations are not new for her, but they last for several minutes at a time. They occur once or twice per month. No prior history of atrial fibrillation to her knowledge. She does not have a watch or wait to monitor her heart rate at home. She currently takes baby aspirin, but no other blood thinners. No prior history of blood thinner use. No history of bleeding disorders or GI bleeds. She denies SOB at rest or when she is flat on her back. Patient took her regular morning medicine today; only recent change in medications were prednisone and azithromycin for her recent infection. No PMH of DVT/PE. She is a current everyday tobacco cigarette smoker; 12 PPD; no interest in quitting at this time. She denies any recent alcohol use. Patient's vital stable at time of admission. ED course: Levalbuterol 1.25 mg neb Aspirin 243 mg p.o. ROS: Patient endorses DAVIS, intermittent chest palpitations, mild pleuritic CP, dry cough, and new onset GARCIA. Patient denies fever, chills, night sweats, dizziness/lightheadedness, chest pain, SOB at rest, erythema/swelling in the legs, abdominal pain, N/V/D, blood in the urine or stool, melena, changes in urinary bowel habits, or numbness or tingling in the arms or legs. Discharge Exam General: No acute distress, nondiaphoretic, well-developed, well-nourished. Cardiac: Regular rate and rhythm without murmurs gallops or rubs. No peripheral edema. Pulm: Clear to auscultation bilaterally without wheezes, rales or rhonchi. Normal respiratory effort. 95% on room air. Abdominal: Soft, nontender, nondistended. Bowel sounds present. Neuro: A&O x3. No focal neurological deficits. Discharge Plan Discharge Items Patient Disposition: Home - Self-Care Reason For Visit: NEW ONSET A FIB RVR Discharge Diagnosis: Paroxysmal atrial fibrillation Condition on Discharge: Good Activity: Resume your previous activity Non-emergency contact: Primary Care Provider and Bread Supervisor Call non-emergency contact if: you have any medication questions and your symptoms worsen Follow-up/Referrals: Dale Powesr PA-C [Physician Refractory Worker] - (Follow-up in 1-2 weeks) Yoli Beaver MD [Primary Care Provider] - 08/29/24 11:00 am (Follow-up in 1-2 weeks) Diet: Heart Healthy Addtl Attending Provider Instructions: Savanah, Ben were admitted to the hospital because of atrial fibrillation with rapid ventricular response (A-fib with RVR). Atrial fibrillation is a condition in which the heart beats in an irregular pattern. It is the most common abnormal heart rhythm. It is caused by a problem in the heart electrical pathways within the muscle of the upper chambers of the heart (atria). Because the atria are not [place] normally, blood may pool in the atria instead of moving into the ventricles (the lower chambers of the heart). This can increase the risk for blood clots and stroke. Heart palpitations are a common symptom of atrial fibrillation. This is the feeling that your heart is fluttering, or beating too fast, hard, or irregular. When the heart beats too fast, it does not pump blood very well. This can cause other symptoms, such as anxiety, fatigue, shortness of breath, chest pain, dizziness, or fainting. Since being in the hospital, you have been in a normal sinus rhythm. Upon discharge from the hospital: * Start Eliquis 5 mg twice daily. This is a blood thinner that reduces the risk of blood clots or stroke. * Increase your metoprolol to 50 mg twice daily (you were previously taking 25 mg twice daily). This is a beta-sbarina medication that slows down your heart rate. * Decrease your aspirin 81 mg to once daily dosing (you were previously taking aspirin twice daily) since you are being started on Eliquis. * Continue your other home medications as prescribed. * Follow-up with your PCP in 1-2 weeks. * Follow-up with cardiology outpatient. The cardiology team will likely arrange a 30-day heart monitor for you. Please call your healthcare provider if you have any of these: Swelling in either leg, feeling lightheaded, faint, or dizzy. Please return to the hospital if any of these occur: Shortness of breath or trouble breathing, passing out, uncontrolled bleeding, heartbeat that is irregular/very fast or slow compared with your normal heartbeat, chest pain or pressure, extreme drowsiness or confusion, numbness or weakness in your arms, legs, or face, or trouble speaking or seeing. It was a pleasure taking care of you while you were in the hospital! Pending Studies at Discharge: No Stand-Alone Forms: My [facility] [employer], Smoking Cessation Medications and DC Order Prescriptions: New metoprolol tartrate 25 mg Tablet 50 mg PO BID Qty: 120 0RF Eliquis 5 mg Tablet 5 mg PO BID Qty: 60 0RF Continued albuterol sulfate 90 mcg/actuation HFA aerosol inhaler 2 puff inhalation Q6H PRN (Reason: shortness of breath or wheezing) 90 Days Qty: 3 3RF fluticasone furoate-vilanterol [Breo Ellipta] 200-25 mcg/dose blister with device 1 inh inhalation QAM Qty: 180 3RF Rx Instructions: INHALE 1 PUFF BY MOUTH DAILY lorazepam 0.5 mg tablet 0.5 mg PO TID PRN (Reason: anxiety) Qty: 30 3RF tramadol 50 mg tablet 50 mg PO Q6H PRN (Reason: pain) Qty: 60 3RF hydroxyzine HCl 25 mg tablet 25 mg PO QID PRN (Reason: itching and anxiety ) Qty: 30 2RF amlodipine 5 mg tablet 5 mg PO QAM Qty: 90 3RF pantoprazole 40 mg tablet,delayed release (DR/EC) 40 mg PO QAM Qty: 90 3RF sertraline 100 mg tablet 100 mg PO QAM sertraline [Zoloft] 25 mg tablet 25 mg PO QAM ezetimibe-simvastatin 10-80 mg tablet 1 tab PO HS meclizine 25 mg Tablet 25 mg PO BID PRN (Reason: Vertigo) Changed aspirin 81 mg Tablet,Delayed Release (Dr/Ec) 81 mg PO DAILY Qty: 0 0RF Discontinued metoprolol tartrate 25 mg tablet 25 mg PO BID Qty: 180 3RF Discharge Orders: Discharge Order (Routine); Ordered 08/17/24 Ordered By: Ayde Hargrove/Other Patient Handouts: AFib Dc Admission Data Admit Date/Time: 08/16/24 15:42 Attending Provider: Jonah Clark Admit Provider: Cory Álvarez Primary Care Provider: Yoli Beaver Other Providers: Cory Álvarez; Gilbert Campos Other Interventions: Discharge Summary Assessment (RN) Last Done: 08/17/24 13:39 Hospital Stay Data Consultations 08/16/24 14:16 ED Decision to Admit Stat 08/16/24 18:19 Consult Cardiology Routine Diagnostic Imagining Performed Chest X-Ray 08/16/24 12:48 XR chest 1V portable CLINICAL HISTORY: Chest pain, nonspecific COMPARISON STUDY: 10/11/2023 FINDINGS: Stable CABG. Stable mild cardiomegaly without pulmonary vascular congestion. No effusion, consolidation, or pneumothorax. IMPRESSION: No acute findings. ACT 112: Negative or not required by law. Electronically signed by: Adan Velásquez M.D. 08/16/2024 1:12 PM Pending Results Patient Have Any Pending Studies at Discharge: No Discharge Instructions Given to Patient (Per Discharging Provider) Savanah Ben were admitted to the hospital because of atrial fibrillation with rapid ventricular response (A-fib with RVR). Atrial fibrillation is a condition in which the heart beats in an irregular pattern. It is the most common abnormal heart rhythm. It is caused by a problem in the heart electrical pathways within the muscle of the upper chambers of the heart (atria). Because the atria are not [place] normally, blood may pool in the atria instead of moving into the ventricles (the lower chambers of the heart). This can increase the risk for blood clots and stroke. Heart palpitations are a common symptom of atrial fibrillation. This is the feeling that your heart is fluttering, or beating too fast, hard, or irregular. When the heart beats too fast, it does not pump blood very well. This can cause other symptoms, such as anxiety, fatigue, shortness of breath, chest pain, dizziness, or fainting. Since being in the hospital, you have been in a normal sinus rhythm. Upon discharge from the hospital: * Start Eliquis 5 mg twice daily. This is a blood thinner that reduces the risk of blood clots or stroke. * Increase your metoprolol to 50 mg twice daily (you were previously taking 25 mg twice daily). This is a beta-sabrina medication that slows down your heart rate. * Decrease your aspirin 81 mg to once daily dosing (you were previously taking aspirin twice daily) since you are being started on Eliquis. * Continue your other home medications as prescribed. * Follow-up with your PCP in 1-2 weeks. * Follow-up with cardiology outpatient. The cardiology team will likely arrange a 30-day heart monitor for you. Please call your healthcare provider if you have any of these: Swelling in either leg, feeling lightheaded, faint, or dizzy. Please return to the hospital if any of these occur: Shortness of breath or trouble breathing, passing out, uncontrolled bleeding, heartbeat that is irregular/very fast or slow compared with your normal heartbeat, chest pain or pressure, extreme drowsiness or confusion, numbness or weakness in your arms, legs, or face, or trouble speaking or seeing. It was a pleasure taking care of you while you were in the hospital! Supervising Physician Co-Signing Physician Notes The patient was not seen by me. The chart was reviewed. Case discussed with YEHUDA Lux. Agree with assessment and plan Total Time Total Time Spent Total Time Spent (In Minutes): Greater than 30 minutes spent completing this discharge process including direct patient care, medication reconciliation, documentation, review of labs and images, and coordination of care. Coding Level of Care Code 48921 INP/OBS DISCH >30 MIN Diagnoses New onset atrial fibrillation I48.91 Paroxysmal atrial fibrillation with RVR I48.0 Coronary artery disease involving [place] coronary artery of [place] heart without angina pectoris I25.10 Associated angina: without angina Coronary Disease-Associated Artery/Lesion type: [place] artery [place] vs. transplanted heart: [place] heart
== END 2024-08-17 14:05 | disposition home or self-care (01) ==
LOC: ED 11:57 → 2W 11:57 → SUATTDRO 15:42 → 2W 16:54